=== PATIENT | female | born 1935 | race Caucasian/White ===

== ENCOUNTER 2018-04-14 17:04 | Emergency (ER) | payer OTHER ==
--- OUTSIDE RECORDS SUMMARY | 2018-04-14 17:06 | XMS REPORT | Continuity of Care Document ---
:1935 Author Organization Interface Problems Problem Status Onset Date Classification Date Comments Source Reported Medications Medication Details Route Status Patient Ordering Order Source Instructions Provider Date Allergies, Adverse Reactions, Alerts Substance Category Reaction Severity Reaction Status Date Comments Source type Reported Immunizations Immunization Date Given Site Status Last Updated Comments Source Results Order Results Value Reference Date Interpretation Comments Source Name Range Vital Signs Vital Sign Value Date Comments Source Encounters Location Location Encounter Encounter Reason Attending ADM DC Status Source Details Type Number For Provider Date Date Visit Outpatient [id number] PAUL 12/16 [facility] [place] Outpatient [id number] PAUL 01/13 [facility] [place] Outpatient [id number] PAUL 06/16 [facility] [place] Procedures Procedure Code Date Perfomer Comments Source
[2018-04-14] MEDS ORDERED: TETANUS & DIPHTHERIA TOX,ADULT 0.5 ML VIAL ONE (19:02)
[2018-04-14] MEDS ORDERED: DERMABOND SKIN ADHESIVE TOP ONE (19:02)
--- NOTE | 2018-04-14 19:26 | RAD REPORT ---
EXAM DESCRIPTION: RAD - Femur Left - 04/14/2018 6:43 pm CLINICAL HISTORY: Fall, leg pain COMPARISON: None. FINDINGS: No gross fracture deformity of the femoral head or neck. Femoral head maintains smooth rou nded contour. Mild for age hip joint degenerative changes are present. No gross deformity of the intertrochanteric portion of the femur. There is a faint curvilinear lucent line in the intertrochanteric portion seen only on the AP projection. Direction of the curvilinear l ucency is not typical for fracture. If patient pain symptoms localize to the proximal femur or there are clinical findings greater than i maging findings, thin section CT imaging could be performed of the proximal right femur. Shaft of the femur is intact. No gross knee abnormality seen. Knee is separately detailed. There is no dislocation or periosteal reaction noted. No pathologic bone process. No air or foreign body in th e soft tissues. IMPRESSION: No gross fracture deformity is seen. Faint curvilinear lucency in the intertrochanteric region of the femur seen only on AP projection is not a typical orientation for intertrochanteric fracture. However, if pain localizes to the proximal femur or exam findings are greater than expected for imaging findings, thin section CT imaging of the left hip could be performed.
--- NOTE | 2018-04-14 19:27 | RAD REPORT ---
EXAM DESCRIPTION: RAD - Knee Right 3 View - 04/14/2018 6:43 pm CLINICAL HISTORY: Fall, knee pain COMPARISON: None. FINDINGS: No fracture, dislocation or periosteal reaction.No joint effusion seen. Medial compartment is slightly narrowed. There are mild medial compartment marginal spurs. No foreign body or other sof t tissue abnormality. Dense arterial tree calcifications are present. IMPRESSION: Degenerative change with no acute bone or joint finding confirmed. Clinical concerns for internal derangement or occult bony injury could be further assessed with MR im aging.
--- NOTE | 2018-04-14 19:46 | EDPHYS ---
Physician Documentation [facility] Name: Neva Cano Age: 82 yrs Sex: Female : 1935 Arrival Date: 04/14/2018 Time: 17:07 Bed 24 Private MD: Андрей Ham ED Physician Dillan Santoro HPI: 04/14 18:59 This 82 yrs old Female presents to ER via Ambulatory with complaints of Fall gs Injury. 18:59 Details of fall: The patient fell from an upright position, while walking. Onset: The gs symptoms/episode began/occurred acutely, just prior to arrival. Associated injuries: The patient sustained injury to the head, laceration, 2 cm(s), of the left supraorbital ridge, right knee, ecchymosis, left quadriceps, ecchymosis. Severity of symptoms: At their worst the symptoms were moderate, in the emergency department the symptoms are unchanged. The patient has not experienced similar symptoms in the past. no loc. Historical: - Allergies: 17:15 Sulfa (Sulfonamide Antibiotics); - Home Meds: 17:15 [place] Thyroid 15 mg Oral tab [Active]; Januvia 100 mg oral tab 1 tab once daily [Active]; furosemide 40 mg Oral tab 1 tab once daily [Active]; turmeric root extract 500 mg oral cap [Active]; pantoprazole 40 mg oral TbEC 1 tab once daily [Active]; metformin 500 mg Oral tab 1 tab 2 times per day [Active]; Lexapro 5 mg Oral tab 1 tab once daily [Active]; amlodipine 5 mg tab 1 tab once daily [Active]; - PMHx: 17:15 Hypothyroidism; Diabetes - NIDDM; Hypertension; hj - PSHx: 17:15 eye; Appendectomy; Hysterectomy; hj - Immunization history:: Adult Immunizations up to date. - Social history:: Smoking status: Patient/guardian denies using tobacco, Patient/guardian denies using alcohol. - Ebola Screening: : Patient negative for fever greater than or equal to 101.5 degrees Fahrenheit, and additional compatible Ebola Virus Disease symptoms Patient denies exposure to infectious person Patient denies travel to an Ebola-affected area in the 21 days before illness onset. ROS: 18:59 All other systems are negative. gs Exam: 18:59 Head/Face: Normocephalic, atraumatic. ENT: Nares patent. No nasal discharge, no gs septal abnormalities noted. Tympanic membranes are normal and external auditory canals are clear. Oropharynx with no redness, swelling, or masses, exudates, or evidence of obstruction, uvula midline. Mucous membranes moist. Neck: Trachea midline, no thyromegaly or masses palpated, and no cervical lymphadenopathy. Supple, full range of motion without nuchal rigidity, or vertebral point tenderness. No Meningismus. Chest/axilla: Normal chest wall appearance and motion. Nontender with no deformity. No lesions are appreciated. Cardiovascular: Regular rate and rhythm with a normal S1 and S2. No gallops, murmurs, or rubs. Normal PMI, no JVD. No pulse deficits. Respiratory: Lungs have equal breath sounds bilaterally, clear to auscultation and percussion. No rales, rhonchi or wheezes noted. No increased work of breathing, no retractions or nasal flaring. Abdomen/GI: Soft, non-tender, with normal bowel sounds. No distension or tympany. No guarding or rebound. No evidence of tenderness throughout. Back: No spinal tenderness. No costovertebral tenderness. Full range of motion. Skin: Warm, dry with normal turgor. Normal color with no rashes, no lesions, and no evidence of cellulitis. Neuro: Awake and alert, GCS 15, oriented to person, place, time, and situation. Cranial nerves II-XII grossly intact. Motor strength 5/5 in all extremities. Sensory grossly intact. Cerebellar exam normal. Normal gait. 18:59 Constitutional: The patient appears alert, awake. 18:59 Eyes: Periorbital structures: laceration, that is superficial, approximately 2 cm(s), on the left supraorbital ridge, Pupils: no acute changes, Extraocular movements: no acute changes, Conjunctiva: no acute changes. 18:59 Musculoskeletal/extremity: Extremities: noted in the right knee: ecchymosis, noted in the left quadriceps: ecchymosis, Pulses: are normal with no appreciated deficits, Sensation intact. Vital Signs: 17:16 BP 136 / 89; Pulse 74; Resp 18; Temp 97.5(TE); Pulse Ox 100% on R/A; Weight 56.7 kg; hj Height 5 ft. 2 in. (157.48 cm); 18:20 BP 128 / 74; Pulse 66; Resp 16; Pulse Ox 98% on R/A; Pain 3/10; ls4 19:20 BP 134 / 78; Pulse 72; Resp 18; Temp 98.2; Pulse Ox 98% on R/A; Pain 3/10; ls4 20:02 BP 128 / 74; Pulse 78; Resp 16; Pulse Ox 99% on R/A; Pain 3/10; ls4 17:16 Body Mass Index 22.86 (56.70 kg, 157.48 cm) hj Laceration: 19:46 Wound Repair of 1cm ( 0.4in ) subcutaneous laceration to left supraorbital ridge. gs Distal neuro/vascular/tendon intact. Skin closed with 1-0 Adhesive skin closure using simple sutures and sterile technique. MDM: 18:10 Patient medically screened. gs 18:59 Differential diagnosis: contusion, fracture, laceration, sprain. Data reviewed: vital gs signs, nurses notes, EMS record. Response to treatment: the patient's symptoms have markedly improved after treatment, and as a result, I will discharge patient. 19:41 ED course: not having hip pain just ecchymosis over anterior left femur. 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 Exp: ls4 10/08/2018. Lot #: [id number]. } {Note: naila A114B APR 27 .} Route: IM; Site: Ventrogluteal RIGHT; 20:09 Follow up: Response: No adverse reaction ls4 Disposition: 04/14/18 19:45 Discharged to Home. Impression: Laceration without foreign body of other part of head, Contusion of right knee, Contusion of left thigh. - Condition is Stable. - Discharge Instructions: Stitches, Vernalis, or Adhesive Wound Closure. - Medication Reconciliation Form, Thank You Letter, Antibiotic Education, Prescription Opioid Use form. - Follow up: Private Physician; When: 2 - 3 days; Reason: Re-evaluation by your physician. Signatures: Dispatcher [employer] EDMS Inocencio Peng RN RN hj Dillan Santoro MD MD gs Stewart, Lisa, RN RN ls4 Corrections: (The following items were deleted from the chart) 18:31 18:14 Femur Left+RAD.RAD.BRZ ordered. [facility] 20:11 19:45 04/14/2018 19:45 Discharged to Home. Impression: Laceration without foreign body ls4 of other part of head; Contusion of right knee; Contusion of left thigh. Condition is Stable. Forms are Medication Reconciliation Form, Thank You Letter, Antibiotic Education, Prescription Opioid Use. Follow up: Private Physician; When: 2 - 3 days; Reason: Re-evaluation by your physician. gs
--- NOTE | 2018-04-14 19:46 | ER ---
Nurse's Notes [facility] Name: Neva Cano Age: 82 yrs Sex: Female : 1935 Arrival Date: 04/14/2018 Time: 17:07 Bed 24 Private MD: Андрей Ham Diagnosis: Laceration without foreign body of other part of head;Contusion of right knee;Contusion of left thigh Presentation: 04/14 17:09 Presenting complaint: Child states: she fell an hour ago, from standing position, hj tripped on a rock, she has a laceration on her L upper eyelid, wound on her L lower arm; pain on the R knee; denies LOC; denies taking blood thinners;. Transition of care: patient was not received from another setting of care. Onset of symptoms was April 14, 2018. Risk Assessment: Do you want to hurt yourself or someone else? Patient reports no desire to harm self or others. Initial Sepsis Screen: Does the patient meet any 2 criteria? No. Patient's initial sepsis screen is negative. Does the patient have a suspected source of infection? No. Patient's initial sepsis screen is negative. Care prior to arrival: None. 17:09 Method Of Arrival: Ambulatory 17:09 Acuity: BRAYAN 4 17:15 Mechanism of Injury: Fall. Trauma event details: Injury occurred in the county [facility], Injury occurred: at home. Injury occurred: April 14, 2018. Triage Assessment: 17:15 General: Appears in no apparent distress. uncomfortable, Behavior is calm, cooperative, hj appropriate for age. Pain:. Historical: - Allergies: 17:15 Sulfa (Sulfonamide Antibiotics); - Home Meds: 17:15 [place] Thyroid 15 mg Oral tab [Active]; Januvia 100 mg oral tab 1 tab once daily [Active]; furosemide 40 mg Oral tab 1 tab once daily [Active]; turmeric root extract 500 mg oral cap [Active]; pantoprazole 40 mg oral TbEC 1 tab once daily [Active]; metformin 500 mg Oral tab 1 tab 2 times per day [Active]; Lexapro 5 mg Oral tab 1 tab once daily [Active]; amlodipine 5 mg tab 1 tab once daily [Active]; - PMHx: 17:15 Hypothyroidism; Diabetes - NIDDM; Hypertension; hj - PSHx: 17:15 eye; Appendectomy; Hysterectomy; hj - Immunization history:: Adult Immunizations up to date. - Social history:: Smoking status: Patient/guardian denies using tobacco, Patient/guardian denies using alcohol. - Ebola Screening: : Patient negative for fever greater than or equal to 101.5 degrees Fahrenheit, and additional compatible Ebola Virus Disease symptoms Patient denies exposure to infectious person Patient denies travel to an Ebola-affected area in the 21 days before illness onset. Screenin:15 Abuse screen: Denies threats or abuse. Denies injuries from another. Nutritional hj screening: No deficits noted. Tuberculosis screening: No symptoms or risk factors identified. Fall Risk Fall in past 12 months (25 points). Primary Survey: 17:55 NO uncontrolled hemorrhage observed. Breathing/Chest: Respiratory pattern: regular, ls4 Respiratory effort: spontaneous, unlabored, Breath sounds: clear, bilaterally. Chest inspection: symmetrical rise and fall of the chest. Circulation: Pulses: palpable right radial artery, right dorsalis pedis artery, left radial artery and left dorsalis pedis artery. Skin color: pink. Disability Alert. Exposure/Environment: All clothing and personal items were removed. Forensic evidence collection is not deemed to be indicated at this time. Items placed in patient belonging bag. There is no evidence of uncontrolled external bleeding. Obvious injury(ies) are noted at this time: left eye laceration and bruise, left forearm skintear. Secondary Survey: 17:56 HEENT: Head Other left eyelid laceration Face Eyes: Ears: clear bilaterally. Nose: ls4 clear Throat: No injury or deformity noted. Gastrointestinal: No deficits noted. Abdomen is soft, non-distended, Bowel sounds present in all quadrants. Palpation No deficit noted. : Urine is clear. Musculoskeletal: No deficits noted. Assessment: 17:53 General: Appears in no apparent distress. Behavior is calm, cooperative. Neuro: Level ls4 of Consciousness is awake, alert, Oriented to person, place, time, situation, Bilingual Case Manager are equal bilaterally Moves all extremities. Gait is steady, Speech is normal, Facial symmetry appears normal, Pupils are PERRLA. Cardiovascular: Denies chest pain, diaphoresis, fatigue, lightheadedness, nausea, palpitations, shortness of breath, syncope, vomiting, Capillary refill < 3 seconds. Respiratory: Airway is patent Respiratory effort is even, unlabored, Respiratory pattern is regular, Breath sounds are clear. GI: No deficits noted. Musculoskeletal: Circulation, motion, and sensation intact. Capillary refill < 3 seconds, Range of motion: intact in all extremities. Vital Signs: 17:16 BP 136 / 89; Pulse 74; Resp 18; Temp 97.5(TE); Pulse Ox 100% on R/A; Weight 56.7 kg; hj Height 5 ft. 2 in. (157.48 cm); 18:20 BP 128 / 74; Pulse 66; Resp 16; Pulse Ox 98% on R/A; Pain 3/10; ls4 19:20 BP 134 / 78; Pulse 72; Resp 18; Temp 98.2; Pulse Ox 98% on R/A; Pain 3/10; ls4 20:02 BP 128 / 74; Pulse 78; Resp 16; Pulse Ox 99% on R/A; Pain 3/10; ls4 17:16 Body Mass Index 22.86 (56.70 kg, 157.48 cm) ED Course: 17:07 Patient arrived in ED. mr 17:07 Андрей Ham is Private Physician. mr 17:11 Triage completed. hj 17:17 Arm band placed on right wrist. hj 17:40 Dillan Santoro MD is Attending Physician. 17:41 Michelle Harrison, RN is Primary Nurse. ls4 17:58 Fall risk band placed. Placed in gown. Bed in low position. Call light in reach. Side ls4 rails up X 1. Adult w/ patient. Valuables Given to family. Urine collected: clean catch specimen, clear. quality assurance monitor chassis on. Pulse ox on. NIBP on. 18:44 Knee Right 3 View XRAY In Process Unspecified. EDMS 18:44 Femur Left In Process Unspecified. EDMS 19:02 Warm blanket given. Verbal reassurance given. ls4 19:02 No provider procedures requiring assistance completed. ls4 19:50 Patient did not have IV access during this emergency room visit. Dressings: ls4 non-adherent dressing x 1 palmar aspect of left forearm KERLIX AND TELFA TO LEFT FOREARM SKIN TEAR. CLEANED WITH SALINE. Wound care: to laceration located on left supraorbital ridge was cleaned with with SALINE. DR VALERIE COLLINS. PT TOLERATED WELL . 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 Exp: ls4 10/08/2018. Lot #: [id number]. } {Note: naila A114B APR 27 .} Route: IM; Site: Ventrogluteal RIGHT; 20:09 Follow up: Response: No adverse reaction ls4 Outcome: 19:45 Discharge ordered by . jose 19:50 Discharged to home ambulatory, with family. ls4 19:50 Condition: stable 19:50 Discharge instructions given to patient, family, Instructed on discharge instructions, follow up and referral plans. medication usage, safety practices, wound care, Demonstrated understanding of instructions, follow-up care, medications, wound care, Prescriptions given X 20:11 Patient left the ED. ls4 Signatures: Dispatcher [employer] STEVE MateuszNeva Henry RN Dillan Ashley MD MD gs Stewart, Lisa, RN RN ls4 Corrections: (The following items were deleted from the chart) 17:12 17:09 Presenting complaint: Child states: she fell an hour ago, from standing position, hj tripped on a rock, she has a laceration on her L upper eyelid, wound on her L lower arm; denies LOC; denies taking blood thinners; hj 17:18 17:16 Pulse 74bpm; Resp 18bpm; Pulse Ox 100% RA; Temp 97.5F Temporal; 56.7 kg; Height 5 hj ft. 2 in.; BMI: 22.8; hj
[2018-04-14 20:27] VITALS: TEMP 98.2
[2018-04-14 20:29] VITALS: BP 128/74; O2SAT 99
== END 2018-04-14 20:11 | disposition home or self-care (01) ==
LOC: ER 17:04
PROC: 0JQ10ZZ Repair Face Subcutaneous Tissue and Fascia, Open Approach (ICD-10-PCS; principal; 2018-04-14)
DX: S01.81XA Laceration without foreign body of other part of head, initial encounter (principal); S80.01XA Contusion of right knee, initial encounter; S70.12XA Contusion of left thigh, initial encounter; W01.0XXA Fall on same level from slipping, tripping and stumbling without subsequent striking against object, initial encounter; Z23 Encounter for immunization; E11.9 Type 2 diabetes mellitus without complications; E03.9 Hypothyroidism, unspecified; Z79.84 Long term (current) use of oral hypoglycemic drugs; Z79.899 Other long term (current) drug therapy
CPT/HCPCS: 90714; 99284

== ENCOUNTER 2019-09-22 16:31 | Observation (INO) | payer OTHER ==
--- OUTSIDE RECORDS SUMMARY | 2019-09-22 16:34 | XMS REPORT | Continuity of Care Document ---
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/2019 [facility] disorder, Neuro systemic arterial (disorder) Hyperlipidemia Active Problem 05/29/2019 Misc her (disorder) Neuro Hypothyroidism Active Problem 05/29/2019 [facility] (disorder) Neuro Mild cognitive Resolved Problem 05/29/2019 Misc her disorder Neuro (disorder) Medications Medication Details Route Status Patient Ordering Order Source Instructions Provider Date galantamine 16 16 mg = 1 Active [facility] mg oral capsule, cap, PO, 019 Neuro extended release QAM, # 90 cap, 2 Refill(s), Pharmacy: [id number] galantamine 12 12 mg = 1 No Longer Misch er mg oral tablet tab, PO, Active 019 Neuro BID, # 180 tab, 3 Refill(s), Pharmacy: [id number] galantamine 12 12 mg = 1 Active [facility] mg oral tablet tab, PO, 019 Neuro BID, # 60 tab, 3 Refill(s), Pharmacy: [id number] Galantamine 8 MG 8 mg = 1 Active Mische r Oral Tablet tab, PO, 019 Neuro [Razadyne] BID, # 180 tab, 1 Refill(s), Pharmacy: [id number] vortioxetine 5 5 mg = 1 Active [facility]ischer MG Oral Tablet tab, PO, 019 Neuro [Trintellix] Daily, 0 Refill(s) Galantamine 4 MG 4 mg = 1 Active Mische r Oral Tablet tab, PO, 019 Neuro [Razadyne] BID, # 180 tab, 1 Refill(s), Pharmacy: [id number] Escitalopram 5 5 mg = 1 Active [facility] MG Oral Tablet tab, PO, 019 Neuro [Lexapro] Daily, # 30 tab, 1 Refill(s) Donepezil 5 mg = 1 No Longer [facility] hydrochloride 5 tab, PO, Active 018 Neuro MG Oral Tablet Daily, # [Aricept] 30 tab, 2 Refill(s) Allergies, Adverse Reactions, Alerts Substance Category Reaction Severity Reaction Status Date Comments S ource type Reported sulfa drugs Assertion Drug Active Mi hannah allergy Neuro Immunizations No Data Provided for This Section Results No Data Provided for This Section Pathology Reports No Data Provided for This Section Diagnostic Reports No Data Provided for This Section Consultation Notes No Data Provided for This Section Discharge Summaries No Data Provided for This Section History and Physicals No Data Provided for This Section Vital Signs Vital Sign Value Date Comments Source Systolic (mm Hg) 144 05/26/2019 [facility] Diastolic (mm Hg) 68 [facility] Heart Rate 71 05/26/2019 [facility] Respitory Rate 16 05/26/2019 [facility] Height 152.4 cm 05/26/2019 [facility] Weight 60.909 05/26/2019 [facility] BMI Calculated 26.22 05/26/2019 [facility] Systolic (mm Hg) 149 03/02/2019 [facility] Macrin ro Diastolic (mm Hg) 64 03/02/2019 [facility] Heart Rate 66 03/02/2019 [facility] Respitory Rate 16 03/02/2019 [facility] Height 152.4 cm 03/02/2019 [facility] Weight 58.182 03/02/2019 [facility] [place] BMI Calculated 25.05 03/02/2019 [facility] Systolic (mm Hg) 183 12/31/2018 [facility] Marcin ro Diastolic (mm Hg) 75 12/31/2018 [facility] Ne uro Heart Rate 71 12/31/2018 [facility] Respitory Rate 16 12/31/2018 [facility] Height 152.4 cm 12/31/2018 [facility] Weight 60.455 12/31/2018 [facility] BMI Calculated 26.03 12/31/2018 [facility] Weight 60 10/01/2018 [facility] Height 152.4 cm 10/01/2018 [facility] BMI Calculated 25.83 10/01/2018 [facility] Respitory Rate 16 10/01/2018 [facility] Heart Rate 73 10/01/2018 [facility] Systolic (mm Hg) 166 10/01/2018 [facility] Marcin ro Diastolic (mm Hg) 72 10/01/2018 [facility] Ne [facility] BMI Calculated 26.03 07/28/2018 [facility] Weight 60.455 07/28/2018 [facility] Height 152.4 cm 07/28/2018 [facility] Neuro Systolic (mm Hg) 162 07/28/2018 [facility] Marcin ro Diastolic (mm Hg) 64 07/28/2018 [facility] Ne uro Heart Rate 67 07/28/2018 [facility] Respitory Rate 16 07/28/2018 [facility] Weight 60.909 01/13/2018 [facility] Neuro BMI Calculated 26.22 01/13/2018 [facility] Height 152.4 cm 01/13/2018 [facility] Neuro Heart Rate 75 01/13/2018 [facility] Systolic (mm Hg) 162 01/13/2018 [facility] Marcin ro Diastolic (mm Hg) 76 01/13/2018 [facility] Ne uro Respitory Rate 16 01/13/2018 [facility] [place] Encounters Location Location Encounter Encounter Reason Attending ADM AK Stat us Source Details Type Number For Provider Date Date Visit Outpatient [id number] PAUL 12/16 [facility] [place] Outpatient [id number] PAUL 01/13 [facility] [place] [facility] Outpatient [id number] Paul 01/13 01/14 [facility] /2017 [facility] [place] [facility] Outside [id number] 04/10 04/12 [facility] /2018 [facility] [place] Records Outpatient [id number] PAUL 06/16 Active [facility] [place] Outpatient [id number] Paul 07/28 Active [facility] [place] [facility] Outpatient [id number] Paul 07/28 07/29 [facility] [place] Outpatient [id number] Paul 10/01 Active [facility] [place] [facility] Outpatient [id number] Paul 10/01 10/02 [facility] /2018 [facility] [place] Outpatient [id number] Paul 12/31 Active [facility] [place] [facility] Outpatient [id number] Paul 12/31 01/01 [facility] [place] Outpatient [id number] Paul 03/02 Active [facility] [place] [facility] Outpatient [id number] Paul 03/02 03/03 [facility] [place] Outpatient [id number] Paul 05/26 Active [facility] [place] [facility] Outpatient [id number] Paul 05/26 05/27 [facility] [place] Outpatient [id number] Paul 09/22 Active [facility] [place] Procedures No Data Provided for This Section Assessment and Plan No Data Provided for This Section Plan of Care No Data Provided for This Section Social History Social History Date Source Social History TypeResponse 07/28/2018 [facility] Employment/School Status: Retired. Other: no driving.1 Smoking Status Never smoker; Exposure to Tobacco Smoke None; Cigarette Smoking Last 365 Days No; Reg Smoking Cessation Counseling No entered on: 05/26/19 1has Will and POA Family History No Data Provided for This Section Advance Directives No Data Provided for This Section Functional Status No Data Provided for This Section
--- NOTE | 2019-09-22 18:02 | RAD REPORT ---
EXAM DESCRIPTION: [place] Single View09/22/2019 5:46 pm CLINICAL HISTORY: Cough COMPARISON: 2011 FINDINGS: Right hemidiaphragm remains elevated Calcified granuloma right lung The lungs appear clear of acute infiltrate. The heart is normal size IMPRESSION: No acute abnormalities displayed
[2019-09-22 18:12] LABS: Absolute Lymphocytes (CBC) 2.5 K/uL (0.7-4.9); Basophils % 1.1 % (0-1.3); Hematocrit 40.4 % (36.0-45.0); Lymphocytes % 30.6 % (15.3-44.8); MPV 8.8 fL (7.6-11.3); RBC Red Blood Cell Count 4.59 M/uL (3.86-4.86)
[2019-09-22 18:24] LABS: ALT/SGPT 25 U/L (12-78); AST/SGOT 19 U/L (15-37); Albumin 3.8 g/dL (3.4-5.0); Alkaline Phosphatase 79 U/L (45-117); BUN Blood Urea Nitrogen 30 mg/dL (7-18); Bicarbonate 25 mmol/L (21-32); Bilirubin Direct 0.1 mg/dL (0-0.2); Bilirubin Total 0.3 mg/dL (0.2-1.0); Glucose Level 156 mg/dL (74-106); Magnesium 2.2 mg/dL (1.8-2.4); NT PRO-BNP 291 pg/mL (<450); Potassium 4.6 mmol/L (3.5-5.1); Protein, Total 7.7 g/dL (6.4-8.2); Sodium Level 136 mmol/L (136-145); Troponin (Emerg Dept Use Only) < 0.02 ng/mL (0.0-0.045)
[2019-09-22] MEDS ORDERED: cloNIDine HCL 0.1 MG TAB ONE (18:45)
[2019-09-22] MEDS ORDERED: HYDRALAZINE HCL 10 MG TABLET ONE (18:56)
[2019-09-22] MEDS ORDERED: HYDRALAZINE HCL 20 MG/ML VIAL ONE (18:56)
--- NOTE | 2019-09-22 19:05 | EDPHYS ---
Physician Documentation [facility] Name: Neva Cano Age: 84 yrs Sex: Female : 1935 Arrival Date: 09/22/2019 Time: 16:33 Bed 7 Private MD: Андрей Ham ED Physician Mitchell Carlson HPI: 09/21 18:12 This 84 yrs old Female presents to ER via Wheelchair with complaints of High [facility] Blood Pressure. 18:12 The patient has elevated blood pressure and discovered this at [facility]. Onset: The symptoms/episode began/occurred just prior to arrival. Modifying factors: The symptoms are aggravated by activity, The symptoms are alleviated by remaining still. Associated signs and symptoms: The patient has no apparent associated signs or symptoms. Severity of symptoms: At its worst the blood pressure was mild, in the emergency department the blood pressure is improved, moderately. The patient has not experienced similar symptoms in the past. Historical: - Allergies: 16:49 Sulfa (Sulfonamide Antibiotics); ss - Home Meds: 16:49 amlodipine 5 mg tab 1 tab once daily [Active]; [place] Thyroid 30 mg oral tab [Active]; ss benazepril 10 mg oral tab 1 tab once daily [Active]; Januvia 100 mg Oral tab 1 tab once daily [Active]; galantamine 16 mg oral C24P 1 cap once daily [Active]; Trintellix 5 mg oral tab 1 tab once daily [Active]; metformin 500 mg oral tr24 [Active]; aspirin 81 mg Oral TbEC 1 tab once daily [Active]; memantine 5 mg oral tab 1 tabs daily [Active]; Crestor 5 mg oral tab 1 tab once daily [Active]; - PMHx: 16:49 Diabetes - NIDDM; Hypertension; Hypothyroidism; Dementia; ss - Immunization history:: Adult Immunizations up to date. - Social history:: Smoking status: Patient denies any tobacco usage or history of. ROS: 18:13 Constitutional: Negative for fever, chills, and weight loss, Eyes: Negative for injury, ruy pain, redness, and discharge, ENT: Negative for injury, pain, and discharge, Neck: Negative for injury, pain, and swelling, Cardiovascular: Negative for chest pain, palpitations, and edema, Respiratory: Negative for shortness of breath, cough, wheezing, and pleuritic chest pain, Abdomen/GI: Negative for abdominal pain, nausea, vomiting, diarrhea, and constipation, Back: Negative for injury and pain, : Negative for injury, bleeding, discharge, and swelling, MS/Extremity: Negative for injury and deformity, Skin: Negative for injury, rash, and discoloration, Neuro: Negative for headache, weakness, numbness, tingling, and seizure, Psych: Negative for depression, anxiety, suicide ideation, homicidal ideation, and hallucinations, Allergy/Immunology: Negative for hives, rash, and allergies, Endocrine: Negative for neck swelling, polydipsia, polyuria, polyphagia, and marked weight changes, Hematologic/Lymphatic: Negative for swollen nodes, abnormal bleeding, and unusual bruising. Exam: 18:13 Constitutional: This is a well developed, well nourished patient who is awake, alert, ruy and in no acute distress. Head/Face: Normocephalic, atraumatic. Eyes: Pupils equal round and reactive to light, extra-ocular motions intact. Lids and lashes normal. Conjunctiva and sclera are non-icteric and not injected. Cornea within normal limits. Periorbital areas with no swelling, redness, or edema. ENT: Nares patent. No nasal discharge, no septal abnormalities noted. Tympanic membranes are normal and external auditory canals are clear. Oropharynx with no redness, swelling, or masses, exudates, or evidence of obstruction, uvula midline. Mucous membranes moist. Neck: Trachea midline, no thyromegaly or masses palpated, and no cervical lymphadenopathy. Supple, full range of motion without nuchal rigidity, or vertebral point tenderness. No Meningismus. Chest/axilla: Normal chest wall appearance and motion. Nontender with no deformity. No lesions are appreciated. Cardiovascular: Regular rate and rhythm with a normal S1 and S2. No gallops, murmurs, or rubs. Normal PMI, no JVD. No pulse deficits. Respiratory: Lungs have equal breath sounds bilaterally, clear to auscultation and percussion. No rales, rhonchi or wheezes noted. No increased work of breathing, no retractions or nasal flaring. Abdomen/GI: Soft, non-tender, with normal bowel sounds. No distension or tympany. No guarding or rebound. No evidence of tenderness throughout. Back: No spinal tenderness. No costovertebral tenderness. Full range of motion. Skin: Warm, dry with normal turgor. Normal color with no rashes, no lesions, and no evidence of cellulitis. MS/ Extremity: Pulses equal, no cyanosis. Neurovascular intact. Full, normal range of motion. Neuro: Awake and alert, GCS 15, oriented to person, place, time, and situation. Cranial nerves II-XII grossly intact. Motor strength 5/5 in all extremities. Sensory grossly intact. Cerebellar exam normal. Normal gait. Psych: Awake, alert, with orientation to person, place and time. Behavior, mood, and affect are within normal limits. 18:13 Musculoskeletal/extremity: ROM: no acute changes, Circulation is intact in all extremities. Sensation intact. Compartment Syndrome exam of affected extremity: is normal. DVT Exam: No signs of deep vein thrombosis. no pain, no swelling, no tenderness, negative Homans' sign noted on exam, no appreciated bluish discoloration, no erythema, no increased warmth. Vital Signs: 16:50 BP 193 / 77; Pulse 64; Resp 16; Temp 98.8; Pulse Ox 96% ; Weight 61.23 kg; Height 5 ft. ss 1 in. (154.94 cm); 18:16 BP 186 / 92; Pulse 60; Resp 15; Pulse Ox 100% ; Pain 0/10; jl7 18:44 BP 221 / 72; Pulse 58; Resp 15; Pulse Ox 100% ; Pain 0/10; jl7 19:28 BP 198 / 57; Pulse 63; Resp 18; Pulse Ox 100% on R/A; mg2 20:14 BP 184 / 52; Pulse 71; Resp 18; Pulse Ox 98% on R/A; mg2 21:03 BP 173 / 52; Pulse 75; Resp 18; Pulse Ox 98% on R/A; mg2 21:47 BP 166 / 51; Pulse 79; Resp 18; Temp 98.7; Pulse Ox 99% on R/A; mg2 16:50 Body Mass Index 25.51 (61.23 kg, 154.94 cm) ss MDM: 17:10 Patient medically screened. ruy 18:14 Differential diagnosis: hypertensive crisis. Data reviewed: vital signs, nurses notes, ruy lab test result(s), EKG, radiologic studies, plain films. Data interpreted: quality assurance monitor chassis: rate is 64 beats/min, rhythm is normal sinus rhythm, Pulse oximetry: on room air is 96 %. Test interpretation: by ED physician or midlevel provider: ECG, plain radiologic studies. Counseling: I had a detailed discussion with the patient and/or guardian regarding: the historical points, exam findings, and any diagnostic results supporting the discharge/admit diagnosis, the presence of at least one elevated blood pressure reading (>120/80) during this emergency department visit, lab results, radiology results, the need for outpatient follow up, for definitive care, a family practitioner. Response to treatment: the patient's symptoms have markedly improved after treatment. 19:06 ED course: DW pt her results, on Norvasc and benazepril, sent from wound care, will OBS ruy to control blood pressure, hydralazine added. 19:25 ED course: pt co of weakness, neuro non focal. [facility] 09/21 17:12 Order name: Basic Metabolic Panel; Complete Time: 18:47 [facility] 09/21 17:12 Order name: CBC with Diff; Complete Time: 18:47 [facility] 09/21 17:12 Order name: LFT's; Complete Time: 18:47 [facility] 09/21 17:12 Order name: Magnesium; Complete Time: 18:47 [facility] 09/21 17:12 Order name: NT PRO-BNP; Complete Time: 18:47 [facility] 09/21 17:12 Order name: Troponin (emerg Dept Use Only); Complete Time: 18:47 [facility] 09/21 20:58 Order name: Basic Metabolic Panel [facility] 09/21 20:58 Order name: Basic Metabolic Panel [facility] 09/21 20:58 Order name: CBC with Automated Diff [facility] 09/21 20:58 Order name: CBC with Automated Diff [facility] 09/21 20:58 Order name: Lipid Profile [facility] 09/21 20:58 Order name: Lipid Profile [facility] 09/21 20:58 Order name: Troponin I [facility] 09/21 20:58 Order name: Troponin I [facility] 09/21 17:12 Order name: XRAY Chest (1 view); Complete Time: 18:47 [facility] 09/21 17:12 Order name: EKG; Complete Time: 17:14 [facility] 09/21 17:12 Order name: Cardiac monitoring; Complete Time: 17:31 [facility] 09/21 17:12 Order name: EKG - Nurse/Tech; Complete Time: 17:31 [facility] 09/21 17:12 Order name: IV Saline Lock; Complete Time: 17: [facility] 09/21 17:12 Order name: Labs collected and sent; Complete Time: : [facility] 09/21 17:12 Order name: O2 Per Protocol; Complete Time: 17: [facility] 09/21 17:12 Order name: O2 Sat Monitoring; Complete Time: 17: [facility] 09/21 17:12 Order name: Urine Dipstick-Ancillary (obtain specimen); Complete Time: 18: [facility] 09/21 20:58 Order name: [facility] 09/21 20:58 Order name: Echo with Doppler [facility] 09/21 20:58 Order name: Troponin I [facility] Administered Medications: 18:54 Drug: hydrALAZINE 5 mg Route: IV; Rate: per protocol; Site: right antecubital; jl7 21:48 Follow up: Response: No adverse reaction; IV Status: Completed infusion mg2 18:54 Drug: hydrALAZINE 10 mg Route: PO; jl7 21:48 Follow up: Response: No adverse reaction mg2 19:28 Drug: Norvasc 5 mg Route: PO; mg2 21:48 Follow up: Response: No adverse reaction mg2 19:28 Drug: Lisinopril 10 mg Route: PO; mg2 21:47 Follow up: Response: No adverse reaction mg2 Disposition: 09/22/19 19:04 Hospitalization ordered by Anita Jefferson for Observation. Preliminary diagnosis are Essential (primary) hypertension - urgency, Unspecified kidney failure - acute on chronic,worsening. - Bed requested for Telemetry/MedSurg (observation). - Status is Observation. jd3 - Condition is Stable. - Problem is new. - Symptoms have improved. Signatures: Dispatcher [employer] EDWA Mitchell Carlson MD MD cha Smirch, Shelby RN RONNA ss Catia Kaufman RN RN tl1 Balaji Covington RN RN jl7 Isra rIwin RN RN jd3 Hossein Rand RN RN mg2 Corrections: (The following items were deleted from the chart) 21:36 19:04 Hospitalization Ordered by Anita Jefferson MD for Observation. Preliminary tl1 diagnosis is Essential (primary) hypertension - urgency; Unspecified kidney failure - acute on chronic,worsening. Bed requested for Telemetry/MedSurg (observation). Status is Observation. Condition is Stable. Problem is new. Symptoms have improved. ruy 22:14 21:36 09/22/2019 19:04 Hospitalization Ordered by Anita Jefferson MD for Observation. jd3 Preliminary diagnosis is Essential (primary) hypertension - urgency; Unspecified kidney failure - acute on chronic,worsening. Bed requested for Telemetry/MedSurg (observation). Status is Observation. Condition is Stable. Problem is new. Symptoms have improved. tl1
--- NOTE | 2019-09-22 19:05 | ER ---
Nurse's Notes [facility] Name: Neva Cano Age: 84 yrs Sex: Female : 1935 Arrival Date: 09/22/2019 Time: 16:33 Bed 7 Private MD: Андрей Ham Diagnosis: Essential (primary) hypertension-urgency;Unspecified kidney failure-acute on chronic,worsening Presentation: 09/21 16:50 Chief complaint: Patient's son or daughter states: SENT FROM DR COUCH FOR INTRACTABLE ss HTN. Coronavirus screen: Proceed with normal triage. Ebola Screen: No symptoms or risks identified at this time. Initial Sepsis Screen: Does the patient meet any 2 criteria? No. Patient's initial sepsis screen is negative. Does the patient have a suspected source of infection? No. Patient's initial sepsis screen is negative. Risk Assessment: Do you want to hurt yourself or someone else? Patient reports no desire to harm self or others. Onset of symptoms is unknown. 16:50 Method Of Arrival: Wheelchair ss 16:50 Acuity: BRAYAN 3 ss Historical: - Allergies: 16:49 Sulfa (Sulfonamide Antibiotics); ss - Home Meds: 16:49 amlodipine 5 mg tab 1 tab once daily [Active]; Independence Thyroid 30 mg oral tab [Active]; ss benazepril 10 mg oral tab 1 tab once daily [Active]; Januvia 100 mg Oral tab 1 tab once daily [Active]; galantamine 16 mg oral C24P 1 cap once daily [Active]; Trintellix 5 mg oral tab 1 tab once daily [Active]; metformin 500 mg oral tr24 [Active]; aspirin 81 mg Oral TbEC 1 tab once daily [Active]; memantine 5 mg oral tab 1 tabs daily [Active]; Crestor 5 mg oral tab 1 tab once daily [Active]; - PMHx: 16:49 Diabetes - NIDDM; Hypertension; Hypothyroidism; Dementia; ss - Immunization history:: Adult Immunizations up to date. - Social history:: Smoking status: Patient denies any tobacco usage or history of. Screenin:16 Abuse screen: Denies threats or abuse. Denies injuries from another. Nutritional jl7 screening: No deficits noted. Tuberculosis screening: No symptoms or risk factors identified. Fall Risk IV access (20 points). Total Marquis Fall Scale indicates No Risk (0-24 pts). Assessment: 17:30 General: Appears in no apparent distress. uncomfortable, Behavior is calm, cooperative, jl7 appropriate for age. Pain: Denies pain. Neuro: Level of Consciousness is awake, alert, obeys commands, Oriented to person, place, time, situation. Cardiovascular: Denies chest pain, Patient's skin is warm and dry. Respiratory: Airway is patent Respiratory effort is even, unlabored, Respiratory pattern is regular, symmetrical. Derm: Skin is pink, warm \T\ dry. 18:30 Reassessment: Patient appears in no apparent distress at this time. No changes from jl7 previously documented assessment. Patient and/or family updated on plan of care and expected duration. Pain level reassessed. Patient is alert, oriented x 3, equal unlabored respirations, skin warm/dry/pink. 19:32 Reassessment: Patient appears in no apparent distress at this time. Patient and/or mg2 family updated on plan of care and expected duration. Pain level reassessed. Patient is alert, oriented x 3, equal unlabored respirations, skin warm/dry/pink. 20:13 Reassessment: Xiao (daughter)- [phone]. mg2 Vital Signs: 16:50 BP 193 / 77; Pulse 64; Resp 16; Temp 98.8; Pulse Ox 96% ; Weight 61.23 kg; Height 5 ft. ss 1 in. (154.94 cm); 18:16 BP 186 / 92; Pulse 60; Resp 15; Pulse Ox 100% ; Pain 0/10; jl7 18:44 BP 221 / 72; Pulse 58; Resp 15; Pulse Ox 100% ; Pain 0/10; jl7 19:28 BP 198 / 57; Pulse 63; Resp 18; Pulse Ox 100% on R/A; mg2 20:14 BP 184 / 52; Pulse 71; Resp 18; Pulse Ox 98% on R/A; mg2 21:03 BP 173 / 52; Pulse 75; Resp 18; Pulse Ox 98% on R/A; mg2 21:47 BP 166 / 51; Pulse 79; Resp 18; Temp 98.7; Pulse Ox 99% on R/A; mg2 16:50 Body Mass Index 25.51 (61.23 kg, 154.94 cm) ED Course: 16:33 Patient arrived in ED. ag5 16:33 Андрей Ham is Private Physician. ag5 16:49 Arm band placed on. ss 16:51 Triage completed. ss 17:10 Mitchell Carlson MD is Attending Physician. ruy 17:30 Initial lab(s) drawn, by me, sent to lab. Urine collected: clean catch specimen, jl7 cloudy. Inserted saline lock: 20 gauge in right antecubital area, using aseptic technique. Blood collected. 17:47 XRAY Chest (1 view) In Process Unspecified. EDMS 18:16 Patient has correct armband on for positive identification. Placed in gown. Bed in low jl7 position. Call light in reach. Side rails up X 1. Pulse ox on. NIBP on. Warm blanket given. 18:17 Balaji Covington, RONNA is Primary Nurse. jl7 19:02 Anita Jefferson MD is Hospitalizing Provider. ruy 19:28 No provider procedures requiring assistance completed. mg2 21:57 Patient admitted, IV remains in place. mg2 Administered Medications: 18:54 Drug: hydrALAZINE 5 mg Route: IV; Rate: per protocol; Site: right antecubital; jl7 21:48 Follow up: Response: No adverse reaction; IV Status: Completed infusion mg2 18:54 Drug: hydrALAZINE 10 mg Route: PO; jl7 21:48 Follow up: Response: No adverse reaction mg2 19:28 Drug: Norvasc 5 mg Route: PO; mg2 21:48 Follow up: Response: No adverse reaction mg2 19:28 Drug: Lisinopril 10 mg Route: PO; mg2 21:47 Follow up: Response: No adverse reaction mg2 Outcome: 19:04 Decision to Hospitalize by Provider. ruy 21:57 Admitted to Med/surg accompanied by tech, via stretcher, room 221, with chart, Report mg2 called to RONNA Finney 21:57 Condition: stable 21:57 Instructed on the need for admit, Demonstrated understanding of instructions. 22:14 Patient left the ED. jd3 Signatures: Dispatcher [employer] EDVT Mitchell Carlson MD MD cha Calderon, Audri RN RN aa5 Angelita Phillip RN RN ss Balaji Covington RN RN jl7 Isra Irwin RN RN jd3 Hossein Rand RN RN mg2 Yara Willard ag5 Corrections: (The following items were deleted from the chart) 18:13 17:30 Nova Cobb, RN is Primary Nurse. aa5 aa5 21:47 21:47 BP 166 / 51; Pulse 79bpm; Resp 18bpm; Pulse Ox 99% RA; mg2 mg2
[2019-09-22] MEDS ORDERED: AMLODIPINE 5 MG TAB ONE (19:29)
[2019-09-22] MEDS ORDERED: lisinopriL 10 MG TAB ONE (19:29)
[2019-09-22] MEDS ORDERED: ACETAMINOPHEN 500 MG TAB PO PRN (20:55)
[2019-09-22] MEDS ORDERED: MORPHINE 4 MG/ML SYR IV PRN (20:55)
[2019-09-22] MEDS ORDERED: HYDRALAZINE HCL 20 MG/ML VIAL IV PRN (20:58)
[2019-09-22] MEDS ORDERED: cloNIDine HCL 0.1 MG TAB PO ONE (20:59)
[2019-09-22 22:50] VITALS: O2SAT 99
[2019-09-22] MEDS: METOPROLOL TAR 50 MG TAB PO SCH (23:15)
[2019-09-23 00:11] VITALS: BMI 25.4
[2019-09-23 05:13] LABS: Absolute Lymphocytes (CBC) 1.6 K/uL (0.7-4.9); Basophils % 0.6 % (0-1.3); Hematocrit 34.8 % (36.0-45.0); Lymphocytes % 19.1 % (15.3-44.8); MPV 8.7 fL (7.6-11.3); RBC Red Blood Cell Count 3.91 M/uL (3.86-4.86)
[2019-09-23 05:31] LABS: BUN Blood Urea Nitrogen 38 mg/dL (7-18); Bicarbonate 24 mmol/L (21-32); Glucose Level 245 mg/dL (74-106); HDL Cholesterol 61 mg/dL (40-60); LDL Cholesterol, Calculated 58 (<130); Potassium 4.7 mmol/L (3.5-5.1); Sodium Level 138 mmol/L (136-145); Troponin I < 0.02 ng/mL (0.0-0.045)
[2019-09-23] MEDS: NA CHLORIDE 0.9% 250 ML IV PRN ×2 (05:46→06:00)
[2019-09-23] MEDS: AMLODIPINE 5 MG TAB PO SCH ×2 (06:00→08:36)
[2019-09-23] MEDS ORDERED: NA CHLORIDE 0.9% 1,000 ML IV SCH (06:00)
[2019-09-23] MEDS: METOPROLOL TAR 50 MG TAB PO SCH (08:36)
--- NOTE | 2019-09-23 08:46 | P.HP ---
Certification for Inpatient Patient admitted to: Observation With expected LOS: <2 Midnights Patient will require the following post-hospital care: None Practitioner: I am a practitioner with admitting privileges, knowledge of patient current condition, hospital course, and medical plan of care. Services: Services provided to patient in accordance with Admission requirements found in Title 42 Section 412.3 of the Code of Federal Regulations Patient History Date of Service: 09/22/19 Reason for admission: Uncontrolled hypertension History of Present Illness: Patient is a 84-year-old female came to the hospital with poorly-controlled blood pressure. Patient going to wound healing to see her wound healing doctor for a arm wound which was healing properly. She had been to the wound Care a couple weeks ago and her blood pressure was 180/100. This time around it was 190/110. She was sent to the emergency room for further evaluation. In the [facility] room she was given some anxiolytics as well as some blood pressure medication and her blood pressure has come down. She actually is over corrected to a systolic of 110. At this time, will go ahead and readjust some of her blood pressure medications as well as given her some anxiolytics. Will give her some IV fluids since her blood pressure came down a little too much. Get echocardiogram to assess cardiac function. If her workup looks good then possible discharge home in the morning. Allergies Sulfa (Sulfonamide Antibiotics) [Sulfa(Sulfonamide Antibiotics)] Allergy (Verified 09/22/19 22:30) Hives/Rash Home Medications: Rosuvastatin Calcium [Crestor] 5 mg PO DAILY 06/30/11 Sitagliptin Phosphate [Januvia] 100 mg PO DAILY 06/30/11 Thyroid,Pork [[place] Thyroid] 30 mg PO DAILY 06/30/11 Amlodipine [Norvasc] 5 mg PO DAILY 09/17/19 Aspirin Chewable [Aspirin Chewable*] 81 mg PO DAILY 09/17/19 Benazepril HCl [Lotensin] 10 mg PO DAILY 09/17/19 Galantamine HBr [Galantamine ER] 16 mg PO DAILY 09/17/19 Memantine HCl 5 mg PO DAILY 09/17/19 Metformin ER [Glucophage ER] 500 mg PO DAILY 09/17/19 Vortioxetine Hydrobromide [Brintellix] 5 mg PO DAILY 09/17/19 - Past Medical/Surgical History Has patient received pneumonia vaccine in the past: Yes Diabetic: Yes -: Dementia -: DM -: HTN -: Incontinence -: Hyperlipidemia -: Appendectomy - Family History Father Family History: Reviewed- Non-Contributory - Social History Smoking Status: Never smoker Alcohol use: No CD- Drugs: No Caffeine use: No Place of Residence: Home Review of Systems 10-point ROS is otherwise unremarkable Physical Examination - Vital Signs Temperature: 97.2 F Blood Pressure: 135/62 Pulse: 54 Respirations: 18 Pulse Ox (%): 96 - Physical Exam General: Alert, In no apparent distress, Oriented x3 HEENT: Atraumatic, PERRLA, Mucous membr. moist/pink, EOMI, Sclerae nonicteric Neck: Supple, 2+ carotid pulse no bruit, No LAD, Without JVD or thyroid abnormality Respiratory: Clear to auscultation bilaterally, Normal air movement Cardiovascular: Regular rate/rhythm, Normal S1 S2, Systolic murmur Gastrointestinal: Normal bowel sounds, Soft and benign, Non-distended, No tenderness Musculoskeletal: No clubbing, No swelling, No tenderness Integumentary: No rashes Neurological: Normal gait, Normal speech, Normal strength at 5/5 x4 extr, Normal tone, Sensation intact, Cranial nerves 3-12 intact, Normal affect Lymphatics: No axilla or inguinal lymphadenopathy - Studies Laboratory Data (last 24 hrs) 09/22/19 18:00: WBC 8.3, Hgb 13.2, Hct 40.4, Plt Count 244 09/22/19 18:00: Sodium 136, Potassium 4.6, BUN 30 H, Creatinine 1.52 H, Glucose 156 H, Magnesium 2.2, Total Bilirubin 0.3, AST 19, ALT 25, Alkaline Phosphatase 79 Assessment & Plan - Problems (Diagnosis) (1) Severe uncontrolled hypertension Current Visit: Yes Status: Acute (2) Anxiety disorder Current Visit: Yes Status: Acute (3) Dementia Current Visit: No Status: Acute (4) Diabetes Current Visit: No Status: Acute (5) Hypertension Current Visit: No Status: Acute (6) Skin tear of left upper extremity Current Visit: No Status: Acute - Plan Plan: 1. Will increase amlodipine and lisinopril to twice a day at the same dosage 2. Echocardiogram 3. Gentle hydration 4. Outpatient follow with a product lead or her PCP 5. Continue her home medications 6. GI and DVT prophylaxis Discharge Plan: Home Plan to discharge in: 24 Hours - Advance Directives Does patient have a Living Will: Yes Does patient have a Durable POA for Healthcare: Yes - Code Status/Comfort Care Code Status Assessed: Yes Code Status: Full Code Critical Care: No Time Spent Managing PTS Care (In Minutes): 45
[2019-09-23] MEDS ORDERED: ENOXAPARIN 30 MG/0.3 ML SQ SCH (09:00)
[2019-09-23] MEDS ORDERED: GALANTAMINE HBR 16 MG PO SCH (09:00)
[2019-09-23] MEDS ORDERED: VORTIOXETINE HYDROBROMIDE 5 MG PO SCH (09:00)
[2019-09-23] MEDS ORDERED: METFORMIN ER 500 MG TAB PO SCH (09:00)
[2019-09-23] MEDS ORDERED: MEMANTINE HCL 10 MG TABLET PO SCH (09:00)
[2019-09-23] MEDS ORDERED: THYROID PORK 30 MG PO SCH (09:00)
[2019-09-23] MEDS ORDERED: BENAZEPRIL 10 MG TAB PO SCH (09:00)
[2019-09-23] MEDS ORDERED: SITAGLIPTIN PHOS 100 MG TAB PO SCH (09:00)
[2019-09-23] MEDS ORDERED: ROSUVASTATIN 10 MG TAB PO SCH (09:00)
[2019-09-23] MEDS ORDERED: ASPIRIN 81 MG CHEWABLE TABLET PO SCH (09:00)
--- NOTE | 2019-09-23 11:36 | RAD REPORT ---
EXAM DESCRIPTION: US - Renal Ultrasound-Complete - 09/23/2019 11:29 am CLINICAL HISTORY: HELLEN/CKD Flank pain COMPARISON: No comparisons FINDINGS: Both kidneys are mildly echogenic. The right kidney measures 10.4 x 4.8 x 3.5 cm. No hydronephrosis, focal mass or perinephric fluid. 15 x 14 mm cortical cyst is present. The left kidney measures 10.1 x 4.7 x 4.6 cm. No hydronephrosis, focal mass or perinephric fluid. The urinary bladder is incompletely distended without gross abnormality seen. IMPRESSION: Mildly increased renal echogenicity is present, likely related to underlying medical rajeev al disease.
[2019-09-23 23:32] VITALS: BP 135/62; TEMP 97.2
--- NOTE | 2019-09-23 23:35 | P.DS ---
Discharge Date: 09/23/19 Disposition: ROUTINE DISCHARGE Discharge Condition: GOOD Reason for Admission: Uncontrolled hypertension - Problems (1) Severe uncontrolled hypertension Status: Acute (2) Anxiety disorder Status: Acute (3) Dementia Status: Acute (4) Diabetes Status: Acute (5) Hypertension Status: Acute (6) Skin tear of left upper extremity Status: Acute Brief History of Present Illness: Patient is a 84-year-old female came to the hospital with poorly-controlled blood pressure. Patient going to wound healing to see her wound healing doctor for a arm wound which was healing properly. She had been to the wound Care a couple weeks ago and her blood pressure was 180/100. This time around it was 190/110. She was sent to the emergency room for further evaluation. In the emergency room she was given some anxiolytics as well as some blood pressure medication and her blood pressure has come down. She actually is over corrected to a systolic of 110. At this time, will go ahead and readjust some of her blood pressure medications as well as given her some anxiolytics. Will give her some IV fluids since her blood pressure came down a little too much. Get echocardiogram to assess cardiac function. If her workup looks good then possible discharge home in the morning. Hospital Course: Patient has done well during hospital stay. Blood pressure is improved. Patient is clinically doing much better. Renal ultrasound did show some mildly increased renal echogenicity likely related to underlying medical renal disease. At this time, patient is stable for discharge with outpatient follow-up. Vital Signs/Physical Exam: Temp Pulse Resp BP Pulse Ox 97.2 F 54 18 135/62 96 09/23/19 23:32 09/23/19 23:32 09/23/19 23:32 09/23/19 23:32 09/23/19 23:32 General: Alert, In no apparent distress, Oriented x3 Laboratory Data at Discharge: WBC 8.2 K/uL (4.3-10.9) 09/23/19 04:34 Hgb 11.5 g/dL (12.0-15.0) L 09/23/19 04:34 Hct 34.8 % (36.0-45.0) L 09/23/19 04:34 Plt Count 215 K/uL (152-406) 09/23/19 04:34 Sodium 138 mmol/L (136-145) 09/23/19 04:34 Potassium 4.7 mmol/L (3.5-5.1) 09/23/19 04:34 BUN 38 mg/dL (7-18) H 09/23/19 04:34 Creatinine 1.73 mg/dL (0.55-1.3) H 09/23/19 04:34 Glucose 245 mg/dL (74-106) H 09/23/19 04:34 Magnesium 2.2 mg/dL (1.8-2.4) 09/22/19 18:00 Total Bilirubin 0.3 mg/dL (0.2-1.0) 09/22/19 18:00 AST 19 U/L (15-37) 09/22/19 18:00 ALT 25 U/L (12-78) 09/22/19 18:00 Alkaline Phosphatase 79 U/L (45-117) 09/22/19 18:00 Troponin I < 0.02 ng/mL (0.0-0.045) 09/23/19 04:34 Triglycerides 92 mg/dL (<150) 09/23/19 04:34 Cholesterol 137 mg/dL (<200) 09/23/19 04:34 HDL Cholesterol 61 mg/dL (40-60) H 09/23/19 04:34 Cholesterol/HDL Ratio 2.25 09/23/19 04:34 Home Medications: Rosuvastatin Calcium [Crestor] 5 mg PO DAILY 06/30/11 Sitagliptin Phosphate [Januvia] 100 mg PO DAILY 06/30/11 Thyroid,Pork [[place] Thyroid] 30 mg PO DAILY 06/30/11 Aspirin Chewable [Aspirin Chewable*] 81 mg PO DAILY 09/17/19 Galantamine HBr [Galantamine ER] 16 mg PO DAILY 09/17/19 Memantine HCl 5 mg PO DAILY 09/17/19 Metformin ER [Glucophage ER] 500 mg PO DAILY 09/17/19 Vortioxetine Hydrobromide [Brintellix] 5 mg PO DAILY 09/17/19 Amlodipine [Norvasc*] 5 mg PO BID #60 tab 09/23/19 Benazepril HCl [Lotensin*] 10 mg PO BID #60 tab 09/23/19 New Medications: Benazepril HCl [Lotensin*] 10 mg PO BID #60 tab Amlodipine [Norvasc*] 5 mg PO BID #60 tab Patient Discharge Instructions: OK TO DC IV AND DC HOME. FOLLOW-UP WITH PRIMARY CARE PROVIDER IN 1-2 WEEKS. FOLLOW-UP WITH CARDIOLOGY IN 1-2 WEEKS. RETURN TO THE ER IF symptoms worsen. CALL or TEXT DR. GALLEGOS AT [phone] IF ANY QUESTIONS REGARDING HOSPITAL STAY. PLEASE CALL THE FLOOR AT [phone] IF ANY MEDICATION OR NURSING QUESTIONS. Diet: AHA Activity: Fall precautions Followup: Rigoberto Yap MD [ACTIVE - CAN ADMIT] - Time spent managing pt's care (in minutes): 25
[2019-09-24] MEDS ORDERED: THYROID 30 MG TAB PO SCH (06:00)
--- NOTE | 2019-09-24 09:37 | ECHO ---
HEIGHT: 5 ft 1 in WEIGHT: 135 lb 0 oz DATE OF STUDY: 09/23/[address]: Anita Jefferson MD 2-DIMENSIONAL: YES M.MODE: YES DOPPLER: YES COLOR FLOW: YES TDS: NO PORTABLE: NO DEFINITY: NO BUBBLE STUDY: NO DIAGNOSIS: HYPERTENSIVE URGENCY CARDIAC HISTORY: CATHERIZATION: NO SURGERY: NO PROSTHETIC VALVE: NO PACEMAKER: NO MEASUREMENTS (cm) DIASTOLIC (NORMALS) SYSTOLIC (NORMALS) IVSd 0.8 (0.6-1.2) LA Diam 2.7 (1.9-4.0) LVEF 56% LVIDd 2.8 (3.5-5.7) LVIDs 2.0 (2.0-3.5) %FS 28% LVPWd 1.0 (0.6-1.2) Ao Diam 2.4 (2.0-3.7) 2 DIMENSIONAL ASSESSMENT: RIGHT ATRIUM: NORMAL LEFT ATRIUM: NORMAL RIGHT VENTRICLE: NORMAL LEFT VENTRICLE: MILD DIASTOLIC DYSFUNCTION TRICUSPID VALVE: MILD TRICUSPID REGURGITATION MITRAL VALVE: NORMAL PULMONIC VALVE: NORMAL AORTIC VALVE: MILD SCLEROSIS PERICARDIAL EFFUSION: NONE AORTIC ROOT: NORMAL LEFT VENTRICULAR WALL MOTION: NORMAL. DOPPLER/COLOR FLOW: NORMAL. COMMENTS: NORMAL LEFT VENTRICULAR EJECTION FRACTION 55-60% WITH NORMALL WALL MOTION. MILD DIASTOLIC DYSFUNCTION. MILD AORTIC VALVE SCLEROSIS, NO AORTIC STENOSIS. TECHNOLOGIST: LOYDA FINK
== END 2019-09-23 16:04 | disposition home or self-care (01) ==
LOC: ER 16:31 → ERHOLD 21:17 → 2ND 21:53
PROVIDERS: ADMIT Hospitalist; ATTEND Hospitalist
DX: I10 Essential (primary) hypertension (principal); S41.102A Unspecified open wound of left upper arm, initial encounter; X58.XXXA Exposure to other specified factors, initial encounter; F41.9 Anxiety disorder, unspecified; F03.90 Unspecified dementia, unspecified severity, without behavioral disturbance, psychotic disturbance, mood disturbance, and anxiety; E11.9 Type 2 diabetes mellitus without complications; E03.9 Hypothyroidism, unspecified; Z11.59 Encounter for screening for other viral diseases; Z79.84 Long term (current) use of oral hypoglycemic drugs; Z79.82 Long term (current) use of aspirin; Z79.899 Other long term (current) drug therapy; I35.8 Other nonrheumatic aortic valve disorders
CPT/HCPCS: 96365; 93306; 85025 ×2; 80048 ×2; 36415; 83735; 80061; 82947 ×2; 80076; 84484 ×3; 83880; 71045; 76770; 99285; 96366; U0002; J0360; J1650; J7030 ×2; G0378 ×3

== ENCOUNTER 2021-06-21 03:46 | Observation (INO) | payer OTHER ==
--- OUTSIDE RECORDS SUMMARY | 2021-06-21 03:49 | XMS REPORT | Continuity of Care Document ---
:1935 Author Organization [facility] t Address [address] [id number] Care Team Providers Name Role Phone Cachorro SANTIAGO, S Attending Clinician Oswaldo RIGGINS, Mundo Attending Clinician Mundo CHACON Attending Clinician Unavailable Flex NGUYỄN Attending Clinician Unavailable Payers Payer Name Policy Type Policy Number Effective Date Expiration Date Liss cheema MEDICARE PART A [id number] 1998 \T\ B 00:00:00 Problems Condition Condition Condition Status Onset Resolution Last Treating Co mments Source Name Details Category Date Date Treatment Clinician Date No known No known Disease Unive rs active active ity of problems problems [facility] Allergies, Adverse Reactions, Alerts Allergy Allergy Status Severity Reaction(s) Onset Inactive Treating Comm ents Source Name Type Date Date Clinician Sulfa Propensi Active Unknown - Pt does Univ ers (Sulfona ty to See comments 9-13 not know ity of mide adverse 00:00: [place] Antibiot reaction 00 Medica l ics) s Branch SULFA Drug Active Unknown-Cmnt Univ ers (SULFONA Class 9-13 ity of MIDE 00:00: [place] ANTIBIOT 00 Medical ICS) Branch Social History Social Habit Start Date Stop Date Quantity Comments Source Exposure to Not sure [facility] SARS-CoV-2 (event) Medica l Branch Tobacco use and 2020-06-30 2020-06-30 Never used [facility] exposure 00:00:00 00:00:00 Medical Branch Sex [birth year] [facility] 00:00:00 00:00:00 Medical Branch Smoking Status Start Date Stop Date Source Never smoker [facility] Medications Ordered Filled Start Stop Current Ordering Indication Dosage Frequency Signature Comments Components Source Medication Medication Date Date Medication? Clinician (SIG) Name Name methylPREDN Yes [id number] 84mg Take 21 Univers ISolone 3-26 9100 tablets by ity of (MEDROL, 00:00: mouth [place] ALLI,) 4 mg 00 SEE-INSTRU Med ical tablets CTIONS. Branch follow package directions methylPREDN Yes [id number] 84mg Take 21 Univers ISolone 3-26 9100 tablets by ity of (MEDROL, 00:00: mouth [place] ALLI,) 4 mg 00 SEE-INSTRU Med ical tablets CTIONS. Branch follow package directions methylPREDN Yes [id number] 84mg Take 21 Univers ISolone 3-26 9100 tablets by ity of (MEDROL, 00:00: mouth [place] ALLI,) 4 mg 00 SEE-INSTRU Med ical tablets CTIONS. Branch follow package directions metformin Yes Univers ER 500 mg 9-19 ity of 24 hr 00:00: [place] tablet Medical Branch metformin Yes Univers ER 500 mg 9-19 ity of 24 hr 00:00: [place] tablet Medical Branch metformin Yes Univers ER 500 mg -19 ity of 24 hr 00:00: [place] tablet Medical Branch furosemide Yes TAKE 1 Unive rs 40 mg 12-06 TABLET BY ity of tablet 00:00: MOUTH 2 [place] TIMES A Medical DAY Branch amLODIPine Yes 5mg Take 5 mg Un joon 5 mg tablet 12-06 by mouth ity of 00:00: daily. [place] [facility] Branch ARMOUR Yes 30mg Take 30 mg Unive rs THYROID 30 12-06 by mouth ity o f mg tablet 00:00: daily. [place] [facility] benazepril Yes 10mg Take 10 mg U nivers 10 mg 12-06 by mouth ity of tablet 00:00: daily. [place] [facility] Branch rosuvastati Yes 5mg Take 5 mg U nivers n 5 mg 12-06 by mouth ity of tablet 00:00: daily. [place] [facility] oxybutynin Yes TAKE 1 Unive rs chloride 5 - TABLET BY ity of mg tablet 00:00: MOUTH [place] TWICE A Medical DAY Branch JANUVIA 100 Yes 100mg Take 100 U nivers mg tablet 9-01 mg by ity of 00:00: mouth [place] daily. Medical Branch furosemide 0 Yes TAKE 1 Unive rs 40 mg 9-01 TABLET BY ity of tablet 00:00: MOUTH 2 TIMES A Medical DAY Branch amLODIPine 0 Yes 5mg Take 5 mg Un joon 5 mg tablet - by mouth ity of 00:00: daily. Medical Branch ARMOUR 0 Yes 30mg Take 30 mg Unive rs THYROID 30 - by mouth ity o f mg tablet 00:00: daily. Medical Branch benazepril 0 Yes 10mg Take 10 mg U nivers 10 mg - by mouth ity of tablet 00:00: daily. Medical Branch rosuvastati Yes 5mg Take 5 mg U nivers n 5 mg - by mouth ity of tablet 00:00: daily. Medical Branch oxybutynin Yes TAKE 1 Unive rs chloride 5 9- TABLET BY ity of mg tablet 00:00: MOUTH TWICE A Medical DAY Branch JANUVIA 100 0 Yes 100mg Take 100 U nivers mg tablet 12-06 mg by ity of 00:00: mouth daily. Medical Branch furosemide Yes TAKE 1 Unive rs 40 mg 9- TABLET BY ity of tablet 00:00: MOUTH 2 TIMES A Medical DAY Branch amLODIPine 0 Yes 5mg Take 5 mg Un joon 5 mg tablet 12-06 by mouth ity of 00:00: daily. Medical Branch ARMOUR 0 Yes 30mg Take 30 mg Unive rs THYROID 30 12-06 by mouth ity o f mg tablet 00:00: daily. Medical Branch benazepril 0 Yes 10mg Take 10 mg U nivers 10 mg 9-01 by mouth ity of tablet 00:00: daily. Medical Branch rosuvastati 0 Yes 5mg Take 5 mg U nivers n 5 mg 9-01 by mouth ity of tablet 00:00: daily. Medical Branch oxybutynin Yes TAKE 1 Unive rs chloride 5 9-01 TABLET BY ity of mg tablet 00:00: MOUTH TWICE A Medical DAY Branch JANUVIA 100 0 Yes 100mg Take 100 U nivers mg tablet 9-01 mg by ity of 00:00: mouth [place] 00 daily. Medical Branch Nitrofurant 2017-0 Yes TAKE 1 Univ ers oin&Nit. 8-30 CAPSULE BY ity o f Macrocryst 00:00: MOUTH [place] 100 mg 00 TWICE Medical capsule DAILY FOR Branch 10 DAYS Nitrofurant 0 Yes TAKE 1 Univ ers oin&Nit. 8-30 CAPSULE BY ity o f Macrocryst 00:00: MOUTH [place] 100 mg 00 TWICE Medical capsule DAILY FOR Branch 10 DAYS Nitrofurant 2017 Yes TAKE 1 Univ ers oin&Nit. 8-30 CAPSULE BY ity o f Macrocryst 00:00: MOUTH [place] 100 mg 00 TWICE Medical capsule DAILY FOR Branch 10 DAYS FREESTYLE Yes USE ONCE A Un joon LITE STRIPS 8-24 DAY ity of strip 00:00: [place] 00 Medical Branch FREESTYLE 2016-0 Yes USE ONCE A Un joon LITE STRIPS 8-24 DAY ity of strip 00:00: [place] 00 Medical Branch FREESTYLE 2016-0 Yes USE ONCE A Un joon LITE STRIPS 8-24 DAY ity of strip 00:00: [place] 00 Medical Branch amoxicillin 2016-0 Yes TAKE 1 Univ ers 875 mg 7-31 TABLET BY ity of tablet 00:00: MOUTH [place] 00 TWICE A Medical DAY FOR 10 Branch DAYS amoxicillin 2016- Yes TAKE 1 Univ ers 875 mg 7-31 TABLET BY ity of tablet 00:00: MOUTH [place] 00 TWICE A Medical DAY FOR 10 Branch DAYS amoxicillin 2016-0 Yes TAKE 1 Univ ers 875 mg 7-31 TABLET BY ity of tablet 00:00: MOUTH [place] 00 TWICE A Medical DAY FOR 10 Branch DAYS Immunizations Ordered Filled Immunization Date Status Comments [facility] e Immunization Name Name SARS-COV-2 COVID-19 2020-05-16 Completed Unive rsity of MODERNA VACCINE 00:00:00 [facility] SARS-COV-2 COVID-19 2020-05-16 Completed Unive rsity of MODERNA VACCINE 00:00:00 [facility] SARS-COV-2 COVID-19 2020-05-16 Completed Unive rsity of MODERNA VACCINE 00:00:00 [facility] SARS-COV-2 COVID-19 2020-04-18 Completed Unive rsity of MODERNA VACCINE 00:00:00 [facility] SARS-COV-2 COVID-19 2020-04-18 Completed Unive rsity of MODERNA VACCINE 00:00:00 [facility] SARS-COV-2 COVID-19 2020-04-18 Completed Unive rsity of MODERNA VACCINE 00:00:00 [facility] Vital Signs Vital Name Observation Time Observation Value Comments Source Systolic blood 2020-06-30 16:25:00 182 mm[Hg] Univer [facility]ity of [facility] Diastolic blood 2020-06-30 16:25:00 82 mm[Hg] Unive rsity of [facility] Body height 2020-06-30 16:19:00 154.9 cm General acute hospital Procedures Procedure Date / Time Performed Performing Clinician Sourvaleriano e XR HIPS 2 VW RIGHT 2020-06-30 16:17:21 Sergio Ivory [facility] Encounters Start End Encounter Admission Attending Care Care Encounter Source Date/Time Date/Time Type Type Clinicians Facility Department ID 2020-06-30 2020-06-30 [facility] [id number] Univers 11:17:20 23:59:00 Encounter Sergio [facility] [id number] ity of Surgical [id number] [place] as Specialti [id number] [place]ical [place] [id number] 2020-06-30 2020-06-30 Office Sergio Ivory [facility] [id number] Univers 11:12:51 11:27:51 Visit Cris Chacon [facility] [id number] ity of Surgical [id number] [place] as Specialti [id number] [place]ical [place] [id number] [facility] 2020-06-30 2020-06-30 Outpatient Kathleen CHACON [facility] [id number] Univers 11:15:00 11:15:00 CRIS davalos [facility] 2020-06-30 2020-06-30 Outpatient Kathleen CHACON [facility] [id number] Univers 09:30:00 09:30:00 CRIS [id number] [facility] 2020-06-30 2020-06-30 Outpatient Kathleen CHACON [facility] [id number] Univers 09:30:00 09:30:00 CRIS [facility] 2020-05-16 2020-05-16 Outpatient Kathleen NGUYỄN [facility] [id number] Univers 15:40:00 15:40:00 EDWARD [id number] [facility] 2020-05-16 2020-05-16 Outpatient Kathleen NGUYỄN [facility] [id number] Univers 15:40:00 15:40:00 EDWARD [facility] 2020-04-18 2020-04-18 Outpatient Kathleen NGUYỄN [facility] [id number] Univers 16:00:00 16:00:00 EDWARD [id number] [facility] 2020-04-18 2020-04-18 Outpatient Kathleen NGUYỄN [facility] [id number] Univers 16:00:00 16:00:00 [facility] Results Test Description Test Time Test Comments Results Result Sour e Comments XR HIPS 2 VW 2020-06-30 Femoral head is Univers ity of RIGHT 16:33:08 round in the [facility] joint space well Branch maintained there is no sign of fracture or dislocation in the area of the trochanter there is some slight spurring
[2021-06-21] MEDS ORDERED: cloNIDine HCL 0.1 MG TAB ONE (04:44)
[2021-06-21 04:52] LABS: Absolute Lymphocytes (CBC) 2.6 K/uL (0.7-4.9); Hematocrit 39.5 % (36.0-45.0); MPV 8.4 fL (7.6-11.3); RBC Red Blood Cell Count 4.51 M/uL (3.86-4.86)
[2021-06-21 05:13] LABS: Protime INR 0.9
--- NOTE | 2021-06-21 08:24 | EDPHYS ---
Physician Documentation [facility] Name: Neva Cano Age: 85 yrs Sex: Female : 1935 Arrival Date: 06/21/2021 Time: 03:51 Bed 17 Private MD: ED Physician Alberto Lauren HPI: 06/21 06:39 This 85 yrs old Female presents to ER via EMS with complaints of S/S of Possible Stroke.kdr 06:39 The patient's problem is reported as altered mental status, decreased responsiveness. kdr Onset: The symptoms/episode began/occurred at an unknown time. The patient was found down on the ground in her apartment. It is unknown how long she had been there. She was last seen well at about 6 PM yesterday. Sometime after she had been down the ground, she was able to press her life alert and summon EMS. When they arrived she was found on the floor by her bed however her walker was short distance away in the bathroom. The patient had no recollection of the events that preceded. On my initial interview the patient was aware of where she was at and how she had arrived to be in the ED but she had no recollection of her circumstances at home. Daughter relates that she has mild dementia but is otherwise functional and lives on her own at this time. Historical: - Allergies: 04:07 Sulfa (Sulfonamide Antibiotics); faby - Home Meds: 04:07 amlodipine 5 mg tab 1 tab once daily [Active]; [place] Thyroid 30 mg Oral tab [Active]; faby aspirin 81 mg Oral TbEC 1 tab once daily [Active]; benazepril 10 mg Oral tab 1 tab once daily [Active]; Crestor 5 mg Oral tab 1 tab once daily [Active]; galantamine 16 mg Oral C24P 1 cap once daily [Active]; Januvia 100 mg Oral tab 1 tab once daily [Active]; memantine 5 mg Oral tab 1 tabs daily [Active]; metformin 500 mg Oral tr24 [Active]; Trintellix 5 mg Oral tab 1 tab once daily [Active]; - PMHx: 04:07 Dementia; Diabetes - NIDDM; Hypertension; Hypothyroidism; faby - Immunization history:: Client reports receiving the 2nd dose of the Covid vaccine. - Social history:: Patient/guardian denies using Smoking status: Patient denies any tobacco usage or history of. ROS: 06:39 Constitutional: Obtained since the patient is mildly demented and has poor recollection kdr of events Exam: 04:16 ECG was reviewed by the Attending Physician. kdr 06:39 Radiologist reports: Head CT negative kdr 06:39 Constitutional: This is a well developed, well nourished patient who is awake, alert, and in no acute distress. Head/Face: Normocephalic, atraumatic. Except for small contusion on the right occipital parietal area Eyes: Pupils equal round and reactive to light, extra-ocular motions intact. Lids and lashes normal. Conjunctiva and sclera are non-icteric and not injected. Cornea within normal limits. Periorbital areas with no swelling, redness, or edema. Neck: Trachea midline, no thyromegaly or masses palpated, and no cervical lymphadenopathy. Supple, full range of motion without nuchal rigidity, or vertebral point tenderness. No Meningismus. Chest/axilla: Normal chest wall appearance and motion. Nontender with no deformity. No lesions are appreciated. Cardiovascular: Regular rate and rhythm with a normal S1 and S2. No gallops, murmurs, or rubs. Normal PMI, no JVD. No pulse deficits. Respiratory: Lungs have equal breath sounds bilaterally, clear to auscultation and percussion. No rales, rhonchi or wheezes noted. No increased work of breathing, no retractions or nasal flaring. Abdomen/GI: Soft, non-tender, with normal bowel sounds. No distension or tympany. No guarding or rebound. No evidence of tenderness throughout. Back: No spinal tenderness. No costovertebral tenderness. Full range of motion. MS/ Extremity: Pulses equal, no cyanosis. Neurovascular intact. Full, normal range of motion. Neuro: Awake and alert, GCS 15, oriented to person, place, time, and situation. Cranial nerves II-XII grossly intact. Motor strength 5/5 in all extremities. Sensory grossly intact. Cerebellar exam normal. Normal gait. Psych: Awake, alert, with orientation to person, place and time. Behavior, mood, and affect are within normal limits. 06:39 Skin: Ecchymosis that is at least a week old on her right flank and hip area. Denied any pain on range of motion of her right lower extremity and hip. Vital Signs: 04:12 BP 222 / 73; Pulse 70; Resp 18; Temp 98.5; Pulse Ox 100% on R/A; Pain 0/10; faby 04:29 BP 197 / 114; Pulse 74; Resp 18; Pulse Ox 99% on R/A; Pain 0/10; faby 04:56 BP 192 / 69; Pulse 79; Resp 16; Pulse Ox 100% on R/A; Pain 0/10; faby 05:20 BP 138 / 51; Pulse 67; Resp 14; Pulse Ox 98% on R/A; faby 06:17 BP 100 / 47; Pulse 55; Resp 16; Temp 98.5; Pulse Ox 100% on R/A; Pain 0/10; faby 06:38 BP 115 / 50; Pulse 58; Resp 18; Pulse Ox 97% on R/A; Pain 0/10; faby 07:25 BP 111 / 50; Pulse 60; Resp 16; Pulse Ox 98% on R/A; Pain 0/10; ab2 08:10 BP 106 / 53; Pulse 59; Resp 18; Pulse Ox 98% on R/A; ab2 09:00 BP 123 / 41; Pulse 58; Resp 17; Pulse Ox 97% on R/A; ab2 10:00 BP 131 / 44; Pulse 56; Resp 16; Pulse Ox 100% on R/A; ab2 11:00 BP 155 / 59; Pulse 62; Resp 17; Pulse Ox 98% on R/A; ab2 MDM: 06:39 Data reviewed: vital signs, nurses notes, lab test result(s), radiologic studies. kdr Counseling: I had a detailed discussion with the patient and/or guardian regarding: the historical points, exam findings, and any diagnostic results supporting the discharge/admit diagnosis, lab results, radiology results. 07:21 Patient medically screened. ms3 08:43 ED course: Discussed case with Dr Neff and he accepts patient as observation. ms3 Discussed plan with patient and her daughter. They understand/ agree with plan.. 06/21 04:17 Order name: Basic Metabolic Panel kdr 06/21 04:17 Order name: CBC with Diff; Complete Time: 05:14 kdr 06/21 04:17 Order name: Protime (+inr); Complete Time: 05:14 kdr 06/21 04:17 Order name: Ptt, Activated; Complete Time: 05:14 kdr 06/21 04:18 Order name: Basic Metabolic Panel; Complete Time: 05:14 EDMS 06/21 04:38 Order name: Glucose, Ancillary Testing; Complete Time: 05:14 EDMS 06/21 03:58 Order name: Ct Stroke Brain Wo Cont EDMS 06/21 06:48 Order name: Troponin High Sensitivity; Complete Time: 08:32 kdr 06/21 08:21 Order name: COVID 19 CPL (Document "Date of Onset" if Symptomatic) ms3 06/21 08:46 Order name: Urinalysis W/Microscopic EDMS 06/21 08:46 Order name: Urine Culture EDMS 06/21 08:47 Order name: Lactate EDMS 06/21 10:27 Order name: SARS-COV-2 RT PCR EDMS 06/21 04:17 Order name: Stroke CXR 1 View kdr 06/21 04:17 Order name: EKG; Complete Time: 04:19 kdr 06/21 04:17 Order name: Accucheck; Complete Time: 04:27 kdr 06/21 04:17 Order name: Cardiac monitoring; Complete Time: 04:18 kdr 06/21 04:17 Order name: EKG - Nurse/Tech; Complete Time: 04:18 kdr 06/21 04:17 Order name: IV Saline Lock; Complete Time: 04:20 kdr 06/21 04:17 Order name: Labs collected and sent; Complete Time: 04:27 kdr 06/21 04:17 Order name: NPO; Complete Time: 04:55 kdr 06/21 04:17 Order name: O2 Per Protocol; Complete Time: 04:55 kdr 06/21 04:17 Order name: O2 Sat Monitoring; Complete Time: 04:55 kdr 06/21 04:17 Order name: Stroke Swallow Screen; Complete Time: 04:44 kdr 06/21 12:06 Order name: CT EDMS EC:16 Rate is 71 beats/min. Rhythm is regular, Normal Sinus Rhythm with No ectopy. QRS [place] kdr is Normal. AL interval is normal. QRS interval is normal. QT interval is normal. Clinical impression: NSR w/ Non-specific ST/T Changes. Administered Medications: 04:44 Drug: cloNIDine 0.2 mg Route: PO; ke1 05:19 Follow up: Response: Blood pressure is lowered faby Point of Care Testing: Blood Glucose: 04:33 Blood Glucose: 260 mg/dL; faby Ranges: Critical Glucose Levels:Adult <50 mg/dl or >400 mg/dl <40 mg/dl or >180 mg/dl Disposition Summary: 06/21/21 08:23 Hospitalization Ordered Hospitalization Status: Observation ms3 Provider: Prince Tawanda ms3 Location: Telemetry/MedSurg (observation) ms3 Condition: Stable ms3 Problem: new ms3 Symptoms: have improved ms3 Bed/Room Type: Standard ms3 Room Assignment: 209(06/21/21 11:28) bd Diagnosis - Syncope ms3 - Fall ms3 - Head contusion ms3 - Leukocytosis ms3 - Renal insufficiency ms3 Forms: - Medication Reconciliation Form ms3 - SBAR form ms3 Signatures: Dispatcher [employer] EDMS Tina Anguiano Kevin, MD MD kdr Sims, Marcus, DO DO ms3 Nan Marie wm Justyna Milton RN RN bo Ebrottie, Kouassi, RN RN ke1 Corrections: (The following items were deleted from the chart) 03:58 03:51 Head Brain Wo Cont ordered. EDMS 04:21 04:19 CT-STROKE BRAIN W/O CONTRAST+CT.RAD.BRZ ordered. EDMS EDMS 11:28 08:23 ms3 bd
--- NOTE | 2021-06-21 08:24 | ER ---
Nurse's Notes [facility] Name: Neva Cano Age: 85 yrs Sex: Female : 1935 Arrival Date: 06/21/2021 Time: 03:51 Bed 17 Private MD: Diagnosis: Syncope;Fall;Head contusion;Leukocytosis;Renal insufficiency Presentation: 06/21 04:05 Chief complaint: EMS states: they were toned out for report of pt having a possible bb syncopal episode she pressed her "emergency button" pt was found on the floor by EMS with her walker in the bathroom. 04:05 Chief complaint: EMS states: fall at home. Coronavirus screen: Vaccine status: Patient faby reports receiving the 2nd dose of the covid vaccine. Moderna. Ebola Screen: Patient negative for fever greater than or equal to 101.5 degrees Fahrenheit, and additional compatible Ebola Virus Disease symptoms Patient denies exposure to infectious person. Patient denies travel to an Ebola-affected area in the 21 days before illness onset. Initial Sepsis Screen: Does the patient meet any 2 criteria? No. Patient's initial sepsis screen is negative. Does the patient have a suspected source of infection? No. Patient's initial sepsis screen is negative. Risk Assessment: Do you want to hurt yourself or someone else? Patient reports no desire to harm self or others. Onset of symptoms is unknown. 04:05 Method Of Arrival: EMS: [facility] faby 04:05 Acuity: BRAYAN 3 faby 04:06 Coronavirus screen: At this time, the client does not indicate any symptoms associated bb with coronavirus-19. Ebola Screen: No symptoms or risks identified at this time. Initial Sepsis Screen:. 04:06 Method Of Arrival: EMS: [facility] bb 04:06 Acuity: BRAYAN 2 bb Triage Assessment: 04:09 General: Appears in no apparent distress. Pain: Denies pain. Neuro: No deficits noted. faby 04:33 General: Behavior is calm, cooperative. faby 04:33 Neuro: Reports. faby Historical: - Allergies: 04:07 Sulfa (Sulfonamide Antibiotics); faby - Home Meds: 04:07 amlodipine 5 mg tab 1 tab once daily [Active]; [place] Thyroid 30 mg Oral tab [Active]; faby aspirin 81 mg Oral TbEC 1 tab once daily [Active]; benazepril 10 mg Oral tab 1 tab once daily [Active]; Crestor 5 mg Oral tab 1 tab once daily [Active]; galantamine 16 mg Oral C24P 1 cap once daily [Active]; Januvia 100 mg Oral tab 1 tab once daily [Active]; memantine 5 mg Oral tab 1 tabs daily [Active]; metformin 500 mg Oral tr24 [Active]; Trintellix 5 mg Oral tab 1 tab once daily [Active]; - PMHx: 04:07 Dementia; Diabetes - NIDDM; Hypertension; Hypothyroidism; faby - Immunization history:: Client reports receiving the 2nd dose of the Covid vaccine. - Social history:: Patient/guardian denies using Smoking status: Patient denies any tobacco usage or history of. Screenin:27 Abuse screen: Denies threats or abuse. Denies injuries from another. Nutritional faby screening: No deficits noted. Tuberculosis screening: No symptoms or risk factors identified. Fall Risk Fall in past 12 months (25 points). IV access (20 points). Ambulatory Aid- Crutches/Cane/Walker (15 pts). Assessment: 04:09 General: The pt was recv'd to room 17 \\T\\ 0354, having had the CT prior to coming back, faby as soon as she got out of the ambulance. A Code Stroke was called \\T\\ 0358, but cancelled \\T\\ 0402, by Dr. England. The pt's daughter is at bedside. . Neuro: No deficits noted. Neuro: Level of Consciousness is awake, alert, obeys commands, Oriented to person, place, time, situation. Cardiovascular: No deficits noted. Rhythm is EKG obtained, as soon as the pt came into the room from CT, which was negative for a bleed. 04:25 Reassessment:. Reassessment: BS= 260. Derm: Bruising that is dark purple, old bruising faby to right hip. 06:18 Reassessment: Awaiting all pending results. The pt's daughter remains at bedside. faby 07:24 Reassessment: Patient appears in no apparent distress at this time. Pt resting ab2 comfortably in bed, denies any needs. Awaiting results for disposition. 08:11 Reassessment: Patient appears in no apparent distress at this time. ED physician at ab2 bedside going over CT results. Plan to keep patient for observation. Awaiting cardiac labs. 10:20 Reassessment: Patient appears in no apparent distress at this time. Pt denies any ab2 needs, awaiting room for admission. 11:23 Reassessment: Patient appears in no apparent distress at this time. Awaiting room for ab2 admission. Vital Signs: 04:12 BP 222 / 73; Pulse 70; Resp 18; Temp 98.5; Pulse Ox 100% on R/A; Pain 0/10; faby 04:29 BP 197 / 114; Pulse 74; Resp 18; Pulse Ox 99% on R/A; Pain 0/10; faby 04:56 BP 192 / 69; Pulse 79; Resp 16; Pulse Ox 100% on R/A; Pain 0/10; faby 05:20 BP 138 / 51; Pulse 67; Resp 14; Pulse Ox 98% on R/A; faby 06:17 BP 100 / 47; Pulse 55; Resp 16; Temp 98.5; Pulse Ox 100% on R/A; Pain 0/10; faby 06:38 BP 115 / 50; Pulse 58; Resp 18; Pulse Ox 97% on R/A; Pain 0/10; faby 07:25 BP 111 / 50; Pulse 60; Resp 16; Pulse Ox 98% on R/A; Pain 0/10; ab2 08:10 BP 106 / 53; Pulse 59; Resp 18; Pulse Ox 98% on R/A; ab2 09:00 BP 123 / 41; Pulse 58; Resp 17; Pulse Ox 97% on R/A; ab2 10:00 BP 131 / 44; Pulse 56; Resp 16; Pulse Ox 100% on R/A; ab2 11:00 BP 155 / 59; Pulse 62; Resp 17; Pulse Ox 98% on R/A; ab2 ED Course: 03:51 Patient arrived in ED. wm 03:58 Ct Stroke Brain Wo Cont In Process Unspecified. EDMS 04:04 Justyna Milton, RN is Primary Nurse. faby 04:07 Triage completed. bb 04:12 Inserted saline lock: 22 gauge in right forearm, using aseptic technique. as6 04:16 Ras England MD is Attending Physician. kdr 04:17 EKG done, by ED staff, reviewed by Ras England MD. oe 04:28 Patient has correct armband on for positive identification. Bed in low position. Call faby light in reach. Side rails up X2. Adult w/ patient. 04:33 Stroke CXR 1 View In Process Unspecified. EDMS 04:33 No provider procedures requiring assistance completed. faby 04:55 Basic Metabolic Panel Sent. faby 04:55 Basic Metabolic Panel Sent. faby 04:55 Ptt, Activated Sent. faby 04:56 Protime (+inr) Sent. faby 04:56 Arm band placed on. faby 07:21 Attending Physician role handed off by Ras England MD ms3 07:21 Alberto Lauren DO is Attending Physician. ms3 08:23 Prince Neff MD is Hospitalizing Provider. ms3 08:41 COVID 19 CPL (Document "Date of Onset" if Symptomatic) Sent. ab2 10:28 Lactate Sent. ab2 10:28 Urinalysis W/Microscopic Sent. ab2 10:28 Urine Culture Sent. ab2 12:14 Report given to Lisa rn. ab2 Administered Medications: 04:44 Drug: cloNIDine 0.2 mg Route: PO; ke1 05:19 Follow up: Response: Blood pressure is lowered faby Point of Care Testing: Blood Glucose: 04:33 Blood Glucose: 260 mg/dL; faby Ranges: Output: 05:31 Urine: 500ml (Voided); Total: 500ml. faby Outcome: 04:33 Condition: stable faby 08:23 Decision to Hospitalize by Provider. ms3 12:14 Admitted to Med/surg accompanied by tech, family with patient, via wheelchair, room ab2 209, with chart. 12:14 Patient left the ED. ab2 Signatures: Dispatcher [employer] EDVT Ras England MD MD [facility] Justyna Armstrong, RN RN bb Adriel Doshi Marcus, DO DO ms3 Nan Marie Ashby, RONNA RN as6 Justyna Milton, RN RN Leonel Dover ab2 Vicente Mcwilliams, RN RN ke1
--- NOTE | 2021-06-21 09:58 | P.HP ---
Certification for Inpatient Patient admitted to: Observation With expected LOS: <2 Midnights Practitioner: I am a practitioner with admitting privileges, knowledge of patient current condition, hospital course, and medical plan of care. Services: Services provided to patient in accordance with Admission requirements found in Title 42 Section 412.3 of the Code of Federal Regulations Patient History Date of Service: 06/21/21 Reason for admission: Fall History of Present Illness: Patient is a 85-year-old female with a past medical history of dementia, hypertension, naq-[id number]-btonopieh type 2 diabetes mellitus and hyperlipidemia. She also has a history of CHF, which seems to have resolved after she follows up with Dr. Rubin. She presents to the ER brought in by EMS after she activated life alert. Early this morning, it seems like patient was returning from the bathroom around 3 AM when she fell trying to scoot over to the bed. She is not very clear whether or not she lost consciousness. She has a history of dementia as stated above. She activated life alert and upon arrival she was found down by EMS. She has evidence of right hip bruising and scalp contusion. Patient usually ambulates with a walker. She lives alone and has a caregiver assistance every day until 5:55 PM. Daughter states her functional capacity has been declining recently. Pertinent negative: no flu- like sx, no diarrhea or vomiting. Allergies Sulfa (Sulfonamide Antibiotics) [Sulfa(Sulfonamide Antibiotics)] Allergy (Verified 09/22/19 22:30) Hives/Rash Home Medications: Rosuvastatin Calcium [Crestor] 5 mg PO DAILY 06/30/11 Sitagliptin Phosphate [Januvia] 100 mg PO DAILY 06/30/11 Thyroid,Pork [[place] Thyroid] 30 mg PO DAILY 06/30/11 Aspirin Chewable [Aspirin Chewable*] 81 mg PO DAILY 09/17/19 Galantamine HBr [Galantamine ER] 16 mg PO DAILY 09/17/19 Memantine HCl 5 mg PO DAILY 09/17/19 Metformin ER [Glucophage ER] 500 mg PO DAILY 09/17/19 Vortioxetine Hydrobromide [Brintellix] 5 mg PO DAILY 09/17/19 Amlodipine [Norvasc*] 5 mg PO BID #60 tab 09/23/19 Benazepril HCl [Lotensin*] 10 mg PO BID #60 tab 09/23/19 - Past Medical/Surgical History Diabetic: Yes -: Dementia -: DM -: HTN -: Incontinence -: Hyperlipidemia -: Appendectomy - Social History Alcohol use: No CD- Drugs: No Caffeine use: No Physical Examination - Physical Exam General: Alert, In no apparent distress, Cooperative HEENT: Other (Scalp contusion) Neck: Supple Respiratory: Clear to auscultation bilaterally, Normal air movement Cardiovascular: Regular rate/rhythm, Normal S1 S2 Gastrointestinal: Soft and benign, Non-distended, No tenderness Musculoskeletal: No clubbing, No swelling, No contractures, Tenderness, Other (Right hip tender to palpation) Neurological: Normal speech, Normal affect, Dementia - Studies Laboratory Data (last 24 hrs) 06/21/21 04:25: PT 9.9, INR 0.90, APTT 32.5 06/21/21 04:25: WBC 11.70 H, Hgb 12.9, Hct 39.5, Plt Count 298 06/21/21 04:25: Sodium 134 L, Potassium 4.0, BUN 30 H, Creatinine 1.53 H, Glucose 249 H Assessment and Plan - Problems (Diagnosis) (1) Fall Current Visit: Yes Status: Acute (2) Dementia Current Visit: No Status: Acute (3) GERD (gastroesophageal reflux disease) Current Visit: No Status: Acute (4) Hyperlipidemia Current Visit: No Status: Acute (5) Hypertension Current Visit: No Status: Acute - Advance Directives Does patient have a Living Will: Yes Does patient have a Durable POA for Healthcare: Yes Physician Review Additional Text: Assessment Patient is a 85-year-old female brought into the hospital after an unwitnessed fall incident. Evidence of scalp hematoma and right hip hematoma. She usually ambulates with a walker. Fall, possible syncope Dementia with decreasing functional status Hypertension Type 2 diabetes mellitus Hyperlipidemia Plan: Admit under observation with telemetry Follow-up 2D echo Obtain orthostatic vital signs I will obtain a hip CT to assess for fracture. Hematoma looks old and it is unclear if she injured her right side which might have affected her ability to ambulate DVT prophylaxis with Lovenox.
--- NOTE | 2021-06-21 11:35 | RAD REPORT ---
EXAM DESCRIPTION: RAD - Chest Single View - 06/21/2021 4:33 am CLINICAL HISTORY: 85 years Female, AMS COMPARISON: Prior chest x-ray report from 09/22/2019. The image was not available for review. TECHNIQUE: Single portable x-ray view of the chest performed on 06/21/2021 at 4:28 AM FINDINGS: The lungs are well-expanded. There is persistent elevation of the right hemidiaphragm. The re is a stable small calcified granuloma in the right midlung. There is no evidence of airspace conso lidation. There is no evidence of a pneumothorax. The cardiac silhouette is normal in size and configuration. The mediastinal contours are normal. No acute osseous abnormality is identified. There is an old healed fracture of the right humeral neck . No acute soft tissue abnormalities are seen. Lines and tubes: None. Free air: None IMPRESSION: 1. No evidence of acute intrathoracic disease. 2. Stable elevation of the right hemidiaphragm. Electronically signed by: Mary Michelle DO 06/21/2021 5:41 AM CDT Due to temporary technical issues with the PACS/Fluency reporting system, reports are being signed by the in house radiologists without review as a courtesy to insure prompt reporting. The interpreting radiologist is fully responsible for the content of the report.
--- NOTE | 2021-06-21 12:05 | RAD REPORT ---
EXAM DESCRIPTION: CT - Hip Right Wo Con - 06/21/2021 11:51 am CLINICAL HISTORY: Right hip pain status post fall COMPARISON: none TECHNIQUE: Computed axial tomography of the right hip were obtained. Coronal and sagittal reconstruc tion was performed. All CT scans are performed using dose optimization technique as appropriate and may include automated exposure control or mA/KV adjustment according to patient size. FINDINGS: The bones are osteoporotic. No fracture or dislocation is seen. The surrounding muscles of the right hip are normal size and density. Subcutaneous contusion right hip. No significant hematoma. No significant joint effusion Sclerosis involving the S1 segment of the sacrum IMPRESSION: No evidence of a right hip fracture. Sclerosis involving the S1 segment of the sacrum. This is nonspecific but could indicate a mild insuf ficiency fracture. If clinically indicated further evaluation with MRI could be obtained
[2021-06-21 12:38] VITALS: O2SAT 98
[2021-06-21] MEDS ORDERED: ACETAMINOPHEN 500 MG TAB PO PRN (12:44)
[2021-06-21 12:47] VITALS: BMI 26.2
[2021-06-21] MEDS: Ringers Lactate 1,000 ML IV SCH ×2 (13:17→21:34)
--- NOTE | 2021-06-21 13:56 | RAD REPORT ---
EXAM DESCRIPTION: CT - Ct Stroke Brain Wo Cont - 06/21/2021 6:04 am CLINICAL HISTORY: 85 years Female HTN, syncopal episode TECHNIQUE: Multiple axial CT images of the brain were performed followed by sagittal and coronal rec onstructed images. The CT study is performed according to ALARA (as low as reasonably achievable) or ALARA/IMAGE GENTLY, with automatic adjustment of mA and/or kV according to patient size. Performed on: 06/21/2021 at 3:54 AM COMPARISON: Brain MRI performed on 01/08/2019. FINDINGS: Brain: There is no evidence of mass, acute mass effect or midline shift. There are no acut e extra-axial fluid collections. There is no evidence of acute intracranial hemorrhage. The cerebra l sulci and ventricles are prominent consistent with mild to moderate cerebral volume loss. There are scattered areas of decreased attenuation within the subcortical and periventricular white matter mos t likely due to mild chronic microangiopathy. There is no evidence of a hyperdense MCA. There are ath erosclerotic calcifications along the cavernous carotid arteries. There is a punctate calcification i n the region of the anterior third ventricle which could be vascular in nature. A tiny colloid cyst i s not entirely excluded. Paranasal Sinuses and Mastoids: There is no significant mucosal thickening of the paranasal sinuses. The mastoid air cells are clear. Orbits: There is an old medial wall blowout fracture of the right orbit and old right orbital floor f racture with enophthalmos Bones: No acute osseous abnormalities are identified. Soft Tissues: There is right parietal scalp soft tissue thickening/swelling. IMPRESSION: 1. There is no evidence of acute intracranial pathology. 2. Mild to moderate cerebral volume loss with findings compatible with chronic microangiopathy. 3. Old right orbital floor fracture and old medial wall blowout fracture with enophthalmos. 4. Right parietal scalp soft tissue thickening/swelling. These critical findings were discussed with Sai Gibbons NP on 06/21/2021 at 4: 33 AM central time. Electronically signed by: Mary Michelle DO 06/21/2021 4:38 AM CDT Due to temporary technical issues with the PACS/Fluency reporting system, reports are being signed by the in House radiologists without review as a courtesy to insure prompt reporting. The interpreting radiolog ist is fully responsible for the content of the report.
--- NOTE | 2021-06-21 14:50 | RAD REPORT ---
EXAM DESCRIPTION: CT - C Spine Wo Con - 06/21/2021 2:03 pm CLINICAL HISTORY: Fall, neck pain COMPARISON: MRI head 01/08/2019 TECHNIQUE: Axial 2 mm thick images of the cervical spine were obtained with sagittal and coronal rec onstruction images generated and reviewed. All CT scans are performed using dose optimization technique as appropriate and may include automated exposure control or mA/KV adjustment according to patient size. FINDINGS: The patient has a baseline has advanced degenerative change at the dens anterior arch C1 l evel. There is significant thickening and calcification of the transverse ligament posterior to the d ens. Fracture is present at the base of the dens. There is cortical irregularity best seen on the sagittal reconstruction. A fracture line is seen extending into the left lateral body of C2. No displacement of the dens from the body. C1 ring is intact. There is normal positioning of the lateral masses of C1 to the occipital condyles and C2 body. Calcific densities are present near the base of the dens. The se small areas of calcification are potentially part of the fracture or callus formation. No additional fractures are identified. Calcifications posterior to the spinous process C7 on the bel ieved be acute. Patient has advanced disc space narrowing and endplate spurring changes at C5-6 and C 6-7. Facet hypertrophy and uncovertebral joint degenerative changes are present at multiple levels. M oderate severity bilateral foraminal stenosis present at C3-4 and right-side C4-5. Bilateral moderate severity foraminal stenosis at C5-6 and C6-7. No facet joint alignment abnormality. No paraspinal mass or hematoma. Central canal detail is inherently limited on CT imaging. Findings telephoned to Flores at the second floor nurse's station 2:46 p.m. IMPRESSION: C2 fracture involving the base of the dens with fracture line extending into the left la teral body of C2. The C2 fracture is favored to be acute. Follow-up MR imaging could be performed to evaluate for activ e marrow edema in the dens and body of C2. No displacement of the dens from the body of C2. There are advanced degenerative changes at the dens C1 level. Multilevel degenerative changes are present with foraminal stenosis at multiple levels and borderline to mild central canal stenosis at C5-6 and C6-7.
[2021-06-21 18:39] LABS: Urine Appearance TURBID (Clear); Urine Bilirubin NEGATIVE (Negative); Urine Blood 1+ (Negative); Urine Color YELLOW (Yellow); Urine Glucose NEGATIVE (Negative); Urine Protein 3+ (Negative); Urine Specific Gravity 1.015 (1.005-1.030); Urine Urobilinogen 0.2 mg/dL (0.2-1.0)
[2021-06-21 19:33] LABS: Urine Bacteria 20-50 /HPF (<20)
--- NOTE | 2021-06-21 19:58 | P.DS ---
Admission Date: 06/21/21 Discharge Date: 06/21/21 Disposition: TRANSFER TO [facility] Discharge Condition: SERIOUS Reason for Admission: Fall Procedures: CT C-spine 06/21/2021 FINDINGS: The patient has a baseline has advanced degenerative change at the dens anterior arch C1 level. There is significant thickening and calcification of the transverse ligament posterior to the dens. Fracture is present at the base of the dens. There is cortical irregularity best seen on the sagittal reconstruction. A fracture line is seen extending into the left lateral body of C2. No displacement of the dens from the body. C1 ring is intact. There is normal positioning of the lateral masses of C1 to the occipital condyles and C2 body. Calcific densities are present near the base of the dens. These small areas of calcification are potentially part of the fracture or callus formation. No additional fractures are identified. Calcifications posterior to the spinous process C7 on the believed be acute. Patient has advanced disc space narrowing and endplate spurring changes at C5-6 and C6-7. Facet hypertrophy and uncovertebral joint degenerative changes are present at multiple levels. Moderate severity bilateral foraminal stenosis present at C3-4 and right-side C4-5. Bilateral moderate severity foraminal stenosis at C5-6 and C6-7. No facet joint alignment abnormality. No paraspinal mass or hematoma. Central canal detail is inherently limited on CT imaging. Findings telephoned to Flores at the second floor nurse's station 2:46 p.m. IMPRESSION: C2 fracture involving the base of the dens with fracture line extending into the left lateral body of C2. The C2 fracture is favored to be acute. Follow-up MR imaging could be performed to evaluate for active marrow edema in the dens and body of C2. No displacement of the dens from the body of C2. There are advanced degenerative changes at the dens C1 level. Multilevel degenerative changes are present with foraminal stenosis at multiple levels and borderline to mild central canal stenosis at C5-6 and C6-7. CT head FINDINGS: Brain: There is no evidence of mass, acute mass effect or midline shift. There are no acute extra-axial fluid collections. There is no evidence of acute intracranial hemorrhage. The cerebral sulci and ventricles are prominent consistent with mild to moderate cerebral volume loss. There are scattered areas of decreased attenuation within the subcortical and periventricular white matter most likely due to mild chronic microangiopathy. There is no evidence of a hyperdense MCA. There are atherosclerotic calcifications along the cavernous carotid arteries. There is a punctate calcification in the region of the anterior third ventricle which could be vascular in nature. A tiny colloid cyst is not entirely excluded. Paranasal Sinuses and Mastoids: There is no significant mucosal thickening of the paranasal sinuses. The mastoid air cells are clear. Orbits: There is an old medial wall blowout fracture of the right orbit and old right orbital floor fracture with enophthalmos Bones: No acute osseous abnormalities are identified. Soft Tissues: There is right parietal scalp soft tissue thickening/swelling. IMPRESSION: 1. There is no evidence of acute intracranial pathology. 2. Mild to moderate cerebral volume loss with findings compatible with chronic microangiopathy. 3. Old right orbital floor fracture and old medial wall blowout fracture with enophthalmos. 4. Right parietal scalp soft tissue thickening/swelling. These critical findings were discussed with Sai Gibbons NP on 06/21/2021 at 4: 33 AM central time. Chest x-ray FINDINGS: The lungs are well-expanded. There is persistent elevation of the right hemidiaphragm. There is a stable small calcified granuloma in the right midlung. There is no evidence of airspace consolidation. There is no evidence of a pneumothorax. The cardiac silhouette is normal in size and configuration. The mediastinal contours are normal. No acute osseous abnormality is identified. There is an old healed fracture of the right humeral neck. No acute soft tissue abnormalities are seen. Lines and tubes: None. Free air: None IMPRESSION: 1. No evidence of acute intrathoracic disease. 2. Stable elevation of the right hemidiaphragm. Hip CT FINDINGS: The bones are osteoporotic. No fracture or dislocation is seen. The surrounding muscles of the right hip are normal size and density. Subcutaneous contusion right hip. No significant hematoma. No significant joint effusion Sclerosis involving the S1 segment of the sacrum IMPRESSION: No evidence of a right hip fracture. Sclerosis involving the S1 segment of the sacrum. This is nonspecific but could indicate a mild insufficiency fracture. If clinically indicated further evaluation with MRI could be obtained Brief History of Present Illness: H&P Patient is a 85-year-old female with a past medical history of dementia, hypertension, are-[id number]-gdrthsdto type 2 diabetes mellitus and hyperlipidemia. She also has a history of CHF, which seems to have resolved after she follows up with Dr. Scottie. She presents to the ER brought in by EMS after she activated life alert. Early this morning, it seems like patient was returning from the bathroom around 3 AM when she fell trying to scoot over to the bed. She is not very clear whether or not she lost consciousness. She has a history of dementia as stated above. She activated life alert and upon arrival she was found down by EMS. She has evidence of right hip bruising and scalp contusion. Patient usually ambulates with a walker. She lives alone and has a caregiver assistance every day until 5:55 PM. Daughter states her functional capacity has been declining recently. Pertinent negative: no flu- like sx, no diarrhea or vomiting. Hospital Course: Patient was admitted to the, began complaining of neck pain. CT C-spine was obtained which demonstrated a C2 fracture involving the base of the dens with fracture line extending into the left lateral body of C2. C2 fracture was favored to be acute by radiologist no displacement of the dens from the body of C2 is noted. Patient was placed in rigid c-collar orthopedics and neurology were consulted who both recommended transfer to tertiary center. I have spoken with neurosurgery at [facility] who is accepted the patient for further evaluation and management of this C2 fracture. At this time patient is without any neurological deficits, rigid c-collar applied. Appreciate help from [facility]. Vital Signs/Physical Exam: Temp Pulse Resp BP Pulse Ox 96.6 F L 54 19 131/66 97 06/21/21 16:00 06/21/21 16:00 06/21/21 16:00 06/21/21 16:00 06/21/21 16:00 General: Alert, In no apparent distress, Oriented x2 HEENT: Atraumatic, PERRLA, EOMI Neck: Supple, JVD not distended Respiratory: Clear to auscultation bilaterally, Normal air movement Cardiovascular: Regular rate/rhythm, Normal S1 S2 Gastrointestinal: Normal bowel sounds, No tenderness Musculoskeletal: No tenderness Integumentary: No rashes Neurological: Normal speech, Normal tone, Normal affect Laboratory Data at Discharge: WBC 11.70 K/uL (4.3-10.9) H 06/21/21 04:25 Hgb 12.9 g/dL (12.0-15.0) 06/21/21 04:25 Hct 39.5 % (36.0-45.0) 06/21/21 04:25 Plt Count 298 K/uL (152-406) 06/21/21 04:25 PT 9.9 SECONDS (9.5-12.5) 06/21/21 04:25 INR 0.90 06/21/21 04:25 APTT 32.5 SECONDS (24.3-36.9) 06/21/21 04:25 Sodium 134 mmol/L (136-145) L 06/21/21 04:25 Potassium 4.0 mmol/L (3.5-5.1) 06/21/21 04:25 BUN 30 mg/dL (7-18) H 06/21/21 04:25 Creatinine 1.53 mg/dL (0.55-1.3) H 06/21/21 04:25 Glucose 249 mg/dL (74-106) H 06/21/21 04:25 Home Medications: Sitagliptin Phosphate [Januvia] 100 mg PO DAILY 06/30/11 Thyroid,Pork [Tiffin Thyroid] 30 mg PO DAILY 06/30/11 Aspirin Chewable [Aspirin Chewable*] 81 mg PO DAILY 09/17/19 Galantamine HBr [Galantamine ER] 16 mg PO DAILY 09/17/19 Memantine HCl 5 mg PO DAILY 09/17/19 Metformin ER [Glucophage ER] 500 mg PO BEDTIME 09/17/19 Benazepril HCl [Lotensin*] 10 mg PO BID #60 tab 09/23/19 Amlodipine [Norvasc] 10 mg PO DAILY 06/21/21 Physician Discharge Instructions: Continue with POC at [facility] Diet: npo Followup: Unknown,U [Primary Care Provider] - Time spent managing pt's care (in minutes): 55
[2021-06-21 20:13] VITALS: BP 152/66; TEMP 97.9
[2021-06-21] MEDS ORDERED: GALANTAMINE 4 MG TAB PO SCH (21:00)
[2021-06-21] MEDS ORDERED: BENAZEPRIL 10 MG TAB PO SCH (21:00)
[2021-06-21] MEDS ORDERED: AMLODIPINE 5 MG TAB PO SCH (21:00)
[2021-06-21] MEDS ORDERED: HYDRALAZINE HCL 20 MG/ML VIAL IV ONE (22:56)
[2021-06-21] MEDS ORDERED: HYDRALAZINE HCL 20 MG/ML VIAL ONE (23:00)
[2021-06-22] MEDS ORDERED: THYROID 30 MG TAB PO SCH (06:00)
[2021-06-22] MEDS ORDERED: AMLODIPINE 10 MG TAB PO SCH (09:00)
[2021-06-22] MEDS ORDERED: ALOGLIPTIN BENZOATE 12.5 MG TABLET PO SCH (09:00)
[2021-06-22] MEDS ORDERED: MEMANTINE HCL 10 MG TABLET PO SCH (09:00)
[2021-06-22] MEDS ORDERED: ASPIRIN 81 MG CHEWABLE TABLET PO SCH (09:00)
[2021-06-22] MEDS ORDERED: VORTIOXETINE HYDROBROMIDE 5 MG PO SCH (09:00)
[2021-06-22] MEDS ORDERED: ROSUVASTATIN CALCIUM 5 MG PO SCH (09:00)
--- NOTE | 2021-06-25 08:32 | EKG ---
Test Date: 2021-06-21 Test Time: 03:05:26 Acting Teacher: MARGY MEASUREMENT RESULTS: Intervals: Rate: 71 UT: 150 QRSD: 70 QT: 406 QTc: 441 [place]: P: 12 UT: 150 QRS: 43 T: 81 INTERPRETIVE STATEMENTS: Normal sinus rhythm Normal ECG Compared to ECG 07/01/2011 06:06:42 No significant changes Electronically Signed On 06-25-21 08:23:53 CDT by Rigoberto Yap
== END 2021-06-21 23:05 | disposition short-term general hospital (02) ==
LOC: ER 03:46 → ERHOLD 09:05 → 2ND 11:57 → UNDODISOB 22:41
PROVIDERS: ADMIT Internal Medicine; ATTEND Internal Medicine
DX: S12.121A Other nondisplaced dens fracture, initial encounter for closed fracture (principal); S00.03XA Contusion of scalp, initial encounter; S70.01XA Contusion of right hip, initial encounter; W19.XXXA Unspecified fall, initial encounter; Y92.002 Bathroom of unspecified non-institutional (private) residence as the place of occurrence of the external cause; F03.90 Unspecified dementia, unspecified severity, without behavioral disturbance, psychotic disturbance, mood disturbance, and anxiety; I10 Essential (primary) hypertension; E11.9 Type 2 diabetes mellitus without complications; E78.5 Hyperlipidemia, unspecified; D72.829 Elevated white blood cell count, unspecified; K21.9 Gastro-esophageal reflux disease without esophagitis; E03.9 Hypothyroidism, unspecified; N28.9 Disorder of kidney and ureter, unspecified; R32 Unspecified urinary incontinence; Z20.822 Contact with and (suspected) exposure to COVID-19; Z79.84 Long term (current) use of oral hypoglycemic drugs; Z79.82 Long term (current) use of aspirin; Z79.899 Other long term (current) drug therapy; Z88.2 Allergy status to sulfonamides
CPT/HCPCS: 93005; 87088; 85025; 81001; 87086; 80048; 36415; 85610; 82947 ×3; 83605 ×2; 85730; 87077; 87186; 84484; 72125; 73700; 70450; 71045; 99285; U0003; J7120; J0360